=== PATIENT | male | born 1935 | race Caucasian/White ===

== ENCOUNTER 2017-10-04 18:45 | Inpatient (IN) | payer MEDICARE, OTHER ==
[~2017-10-04] VITALS: Ht 177.8 cm; Wt 81.6 kg
[2017-10-04] MEDS ORDERED: FAMOTIDINE20 MG GT (19:03)
[2017-10-04] MEDS ORDERED: HEPARIN2000 UNIT/ IV (19:03)
[2017-10-04] MEDS ORDERED: LEXAPRO10 MG GT (19:03)
[2017-10-04] MEDS ORDERED: DONEPEZIL HCL10 M2 GT (19:03)
[2017-10-04] MEDS ORDERED: NAMENDA10 MG GT (19:03)
[2017-10-04] MEDS ORDERED: MELATONIN1 M2 GT (19:03)
[2017-10-04] MEDS ORDERED: MIRALAX17 G2 ORAL (19:03)
[2017-10-04] MEDS ORDERED: CARDURA1 MG GT (19:03)
[2017-10-04] MEDS ORDERED: DOCUSATE SODIU100 MG GT (19:03)
[2017-10-04] MEDS ORDERED: KLONOPIN0.5 MG GT (19:03)
[2017-10-04] MEDS ORDERED: ANUSOL-HC30 GM RC (19:03)
[2017-10-04] MEDS ORDERED: PANTOPRAZOLE SO40 MG ORAL (19:03)
[2017-10-04] MEDS ORDERED: ASPIR 8181 MG GT (19:03)
[2017-10-04 19:10] VITALS: BP 157/92
[2017-10-04] MEDS ORDERED: Pantoprazole Inj IV ONE (19:15)
[2017-10-04 19:33] LABS: BASOPHILS % (AUTO) 0.6 % (0.0-2.0); EOSINOPHILS % (AUTO) 0.1 % (0.0-3.0); HEMATOCRIT 50.1 % (42.0-52.0); HEMOGLOBIN 15.8 G/DL (14.2-18.0); MEAN CORPUSCULAR VOLUME 96 FL (80-99); MONOCYTES % (AUTO) 8.1 % (1.0-10.0); NEUTROPHILS % (AUTO) 79.3 % (45.0-75.0); PLATELET COUNT 158 K/UL (150-450); RED BLOOD COUNT 5.23 M/UL (4.70-6.10); WHITE BLOOD COUNT 8.4 K/UL (4.8-10.8)
[2017-10-04 19:40] LABS: INR 1.1 (0.9-1.1)
[2017-10-04 19:43] LABS: ANION GAP 9 mmol/L (5-15); BLOOD UREA NITROGEN 18 mg/dL (7-18); CALCIUM 9.8 MG/DL (8.5-10.1); CARBON DIOXIDE 30 MMOL/L (21-32); CHLORIDE 99 MMOL/L (98-107); CREATININE 0.8 MG/DL (0.55-1.30); POTASSIUM 3.7 MMOL/L (3.5-5.1); SODIUM 138 MMOL/L (136-145)
[2017-10-04 19:56] LABS: ALANINE AMINOTRANSFERASE 13 U/L (12-78); ALBUMIN 3.6 G/DL (3.4-5.0); ALBUMIN/GLOBULIN RATIO 0.8 (1.0-2.7); ALKALINE PHOSPHATASE 180 U/L (46-116); ASPARTATE AMINO TRANSFERASE 20 U/L (15-37); BILIRUBIN,TOTAL 1.5 MG/DL (0.2-1.0); CKMB 1.4 NG/ML (0.0-3.6); CREATINE KINASE 78 U/L (26-308)
[2017-10-04 19:57] LABS: BILIRUBIN,DIRECT 0.3 MG/DL (0.0-0.3)
[2017-10-04] MEDS ORDERED: Morphine Sulfate 4mg/ml Inj IVP ONE (20:45)
[2017-10-04 20:53] LABS: APPEARANCE,URINE CLEAR; BILIRUBIN, URINE NEGATIVE (NEGATIVE); GLUCOSE, URINE (UA) NEGATIVE (NEGATIVE); KETONES,URINE 1+ (NEGATIVE); LEUKOCYTE ESTERASE ,URINE 1+ (NEGATIVE); NITRITE,URINE NEGATIVE (NEGATIVE); PH,URINE 5 (4.5-8.0); PROTEIN,URINE 2+ (NEGATIVE); UROBILINOGEN,URINE 1 MG/DL (0.0-1.0)
[2017-10-04 20:57] LABS: COLOR,URINE YELLOW
[2017-10-04 21:00] VITALS: BP 151/74
--- NOTE | 2017-10-04 21:42 | Emergency Room Report ---
History of Present Illness General Chief Complaint: Gastrointestinal Bleed Source: Patient Present Illness HPI 81-year-old male presents ED for evaluation. Patient presents with coffee- ground emesis x2. From shelter today. Patient also complain of epigastric pain, 10 out of 10, sharp, nonradiating. Denies chest pain or shortness of breath. Denies fevers or chills. No other aggravating relieving factors. Denies any other associated symptoms Allergies: Coded Allergies: No Known Allergies (Unverified , 11/30/12) Patient History Past Medical History: HTN Past Surgical History: none Pertinent Family History: none Social History: Denies: smoking, alcohol use, drug use Immunizations: UTD Reviewed Nursing Documentation: PMH: Agreed, PSxH: Agreed Nursing Documentation-PMH Hx Hypertension: Yes Hx Cancer: No Hx Neurological Problems: No Review of Systems All Other Systems: negative except mentioned in HPI Physical Exam Vital Signs Date Time Temp Pulse Resp B/P (MAP) Pulse Ox O2 Delivery O2 Flow Rate FiO2 10/04/17 18:53 98.2 86 20 157/92 100 Room Air Sp02 EP Interpretation: reviewed, normal General Appearance: no apparent distress, alert, GCS 15, non-toxic Head: normocephalic, atraumatic Eyes: bilateral eye normal inspection, bilateral eye PERRL ENT: hearing grossly normal, normal pharynx, no angioedema, normal voice Neck: full range of motion, supple/symm/no masses Respiratory: chest non-tender, lungs clear, normal breath sounds, speaking full sentences Cardiovascular #1: regular rate, rhythm, no edema Cardiovascular #2: 2+ carotid (R), 2+ carotid (L), 2+ radial (R), 2+ radial (L) , 2+ dorsalis pedis (R), 2+ dorsalis pedis (L) Gastrointestinal: normal bowel sounds, soft, non-distended, no guarding, no rebound, tenderness - epigastric Rectal: deferred Genitourinary: normal inspection, no CVA tenderness Musculoskeletal: back normal, gait/station normal, normal range of motion, non- tender Neurologic: alert, oriented x3, responsive, motor strength/tone normal, sensory intact, speech normal Psychiatric: judgement/insight normal, memory normal, mood/affect normal, no suicidal/homicidal ideation Reflexes: 3+ bicep (R), 3+ bicep (L), 3+ tricep (R), 3+ tricep (L), 3+ knee (R) , 3+ knee (L) Skin: normal color, no rash, warm/dry, well hydrated Lymphatic: no adenopathy Medical Decision Making Diagnostic Impression: Primary Impression: UGIB (upper gastrointestinal bleed) ER Course Hospital Course 81-year-old female presents to ED with coffee-ground abscess, epigastric pain Differential diagnoses include: UGIB, LGIB, hemorrhoids Clinical course Patient placed on stretcher. ekg monitor. After initial history and physical I ordered labs, IV fluids, EKG, zofran, protonix Labs - no leukocytosis, Hb/Hct stable. electrolytes ok, trop negative EKG - NSR no acute ischemic changes interpreted by me Case discussed with Dr. Sanchez and he agreed to accept the patient to his service for further care and support I feel this is a highly complex case requiring extensive working including EKG/ Rhythm strip, Xray/CT/US, Blood/urine lab work, repeat exams while in ED, and administration of strong opiates/narcotics for pain control, admission to hospital or close patient follow up. Diagnosis - UGIB Patient admitted to telemetry in serious condition Labs Test 10/04/17 19:10 10/04/17 20:40 White Blood Count 8.4 K/UL (4.8-10.8) Red Blood Count 5.23 M/UL (4.70-6.10) Hemoglobin 15.8 G/DL (14.2-18.0) Hematocrit 50.1 % (42.0-52.0) Mean Corpuscular Volume 96 FL (80-99) Mean Corpuscular Hemoglobin 30.3 PG (27.0-31.0) Mean Corpuscular Hemoglobin Concent 31.6 G/DL (32.0-36.0) Red Cell Distribution Width 12.0 % (11.6-14.8) Platelet Count 158 K/UL (150-450) Mean Platelet Volume 8.3 FL (6.5-10.1) Neutrophils (%) (Auto) 79.3 % (45.0-75.0) Lymphocytes (%) (Auto) 12.0 % (20.0-45.0) Monocytes (%) (Auto) 8.1 % (1.0-10.0) Eosinophils (%) (Auto) 0.1 % (0.0-3.0) Basophils (%) (Auto) 0.6 % (0.0-2.0) Prothrombin Time 11.4 SEC (9.30-11.50) Prothromb Time International Ratio 1.1 (0.9-1.1) Activated Partial Thromboplast Time 29 SEC (23-33) Sodium Level 138 MMOL/L (136-145) Potassium Level 3.7 MMOL/L (3.5-5.1) Chloride Level 99 MMOL/L (98-107) Carbon Dioxide Level 30 MMOL/L (21-32) Anion Gap 9 mmol/L (5-15) Blood Urea Nitrogen 18 mg/dL (7-18) Creatinine 0.8 MG/DL (0.55-1.30) Estimat Glomerular Filtration Rate mL/min (>60) Glucose Level 122 MG/DL (74-106) Calcium Level 9.8 MG/DL (8.5-10.1) Total Bilirubin 1.5 MG/DL (0.2-1.0) Direct Bilirubin 0.3 MG/DL (0.0-0.3) Aspartate Amino Transf (AST/SGOT) 20 U/L (15-37) Alanine Aminotransferase (ALT/SGPT) 13 U/L (12-78) Alkaline Phosphatase 180 U/L (46-116) Total Creatine Kinase 78 U/L (26-308) Creatine Kinase MB 1.4 NG/ML (0.0-3.6) Creatine Kinase MB Relative Index 1.7 Troponin I 0.003 ng/mL (0.000-0.056) Total Protein 8.1 G/DL (6.4-8.2) Albumin 3.6 G/DL (3.4-5.0) Globulin 4.5 g/dL Albumin/Globulin Ratio 0.8 (1.0-2.7) Lipase 87 U/L (73-393) Urine Color Yellow Urine Appearance Clear Urine pH 5 (4.5-8.0) Urine Specific [place] 1.025 (1.005-1.035) Urine Protein 2+ (NEGATIVE) Urine Glucose (UA) Negative (NEGATIVE) Urine Ketones 1+ (NEGATIVE) Urine Occult Blood 1+ (NEGATIVE) Urine Nitrite Negative (NEGATIVE) Urine Bilirubin Negative (NEGATIVE) Urine Urobilinogen 1 MG/DL (0.0-1.0) Urine Leukocyte Esterase 1+ (NEGATIVE) Urine RBC 5-10 /HPF (0 - 0) Urine WBC 2-4 /HPF (0 - 0) Urine Squamous Epithelial Cells None /LPF (NONE/OCC) Urine Amorphous Sediment Few /LPF (NONE) Urine Bacteria Moderate /HPF (NONE) EKG Diagnostic Results Rate: normal Rhythm: NSR ST Segments: no acute changes ASA given to the pt in ED: No Rhythm Strip Diag. Results EP Interpretation: yes Rhythm: NSR, no PVC's, no ectopy Last Vital Signs Date Time Temp Pulse Resp B/P (MAP) Pulse Ox O2 Delivery O2 Flow Rate FiO2 10/04/17 19:10 98.2 90 20 157/92 100 Room Air Status: improved Disposition: ADMITTED INPATIENT Condition: Serious Referrals: LUIS A WILLSON (PCP) WILLIAM JIMENEZ M.D. Oct 04, 2017 21:42
[2017-10-04 23:00] VITALS: BP 136/69
[2017-10-05] VITALS (7 sets, daily range): BP systolic 122–153; BP diastolic 61–78
[2017-10-05] MEDS ORDERED: clonazePAM 0.5mg tab GT PRN (01:00)
[2017-10-05] MEDS ORDERED: Miralax 17gm pkt GT PRN (01:00)
[2017-10-05] MEDS: D5 1/2NS 1,000 ML IV SCH ×2 (02:11→15:11)
[2017-10-05 07:41] LABS: BASOPHILS % (AUTO) 0.2 % (0.0-2.0); HEMATOCRIT 40.3 % (42.0-52.0); HEMOGLOBIN 13.6 G/DL (14.2-18.0); LYMPHOCYTES % (AUTO) 7.9 % (20.0-45.0); MEAN CORPUSCULAR VOLUME 96 FL (80-99); MONOCYTES % (AUTO) 7.2 % (1.0-10.0); NEUTROPHILS % (AUTO) 84.7 % (45.0-75.0); PLATELET COUNT 142 K/UL (150-450); RED BLOOD COUNT 4.21 M/UL (4.70-6.10); RED CELL DISTRIBUTION WIDTH 12.4 % (11.6-14.8); WHITE BLOOD COUNT 10.1 K/UL (4.8-10.8)
[2017-10-05 08:13] LABS: ANION GAP 5 mmol/L (5-15); BLOOD UREA NITROGEN 16 mg/dL (7-18); CALCIUM 8.9 MG/DL (8.5-10.1); CARBON DIOXIDE 32 MMOL/L (21-32); CHLORIDE 103 MMOL/L (98-107); CREATININE 0.9 MG/DL (0.55-1.30); PHOSPHORUS 3.3 MG/DL (2.5-4.9); SODIUM 140 MMOL/L (136-145)
[2017-10-05 08:15] LABS: INR 1.1 (0.9-1.1)
[2017-10-05] MEDS ORDERED: Donepezil 10mg tab GT SCH (09:00)
[2017-10-05] MEDS ORDERED: Escitalopram Oxalate 5mg tab GT SCH (09:00)
[2017-10-05] MEDS: Doxazosin 1mg Tab GT SCH (09:23)
[2017-10-05] MEDS: Memantine 10mg tab GT SCH (09:24)
[2017-10-05] MEDS: Pantoprazole Inj IVP SCH ×2 (09:25→21:45)
--- NOTE | 2017-10-05 12:20 | Diagnostic Imaging Report ---
Indication: Nausea and vomiting. Comparison: None Single view of the abdomen obtained Findings: Some stool retention noted within the colon and rectum. Small bowel is mildly distended in a diffuse fashion. Bones are osteopenic. IMPRESSION: Moderate stool retention. Generalized small bowel dilatation. Ileus suspected. Please correlate clinically. Bowel obstruction not entirely excludable.
--- NOTE | 2017-10-05 12:21 | Diagnostic Imaging Report ---
Indication: Dyspnea Comparison: None A single view chest radiograph was obtained. Findings: Vascularity and reticular markings are prominent within the lungs. Heart size is normal. Basilar atelectasis demonstrated. Bones are osteopenic. IMPRESSION: Possible interstitial edema. Consider noncardiogenic causes. Basilar atelectasis
[2017-10-05] MEDS ORDERED: Morphine Sulfate 2mg/ml Inj IV PRN (13:45)
[2017-10-05] MEDS ORDERED: Mineral Oil 30ml ud ORAL ONE (14:00)
--- NOTE | 2017-10-05 14:55 | Consultation ---
History of Present Illness General Date patient seen: Oct 05, 2017 Chief Complaint: Gastrointestinal Bleed Reason for Consultation: inpatient management Present Illness HPI 81-year-old male with hx of dementia, Gtube, depression, bed bound, prison resident presented to ED for evaluation of coffee-ground emesis x2. Patient also complain of epigastric pain, 10 out of 10, sharp, nonradiating. Denies chest pain or shortness of breath. Pts at the bed site, stating that the pt has hiccups for the last 5 years. Denies any other associated symptoms Allergies: Coded Allergies: No Known Allergies (Unverified , 11/30/12) Medication History Scheduled Aspirin* (Aspir 81*), 81 MG GT DAILY, (Reported) Docusate Sodium* (Docusate Sodium*), 200 MG GT TWICE A DAY, (Reported) Donepezil Hcl* (Donepezil Hcl*), 10 MG GT DAILY, (Reported) Doxazosin Mesylate* (Cardura*), 1 MG GT DAILY, (Reported) Escitalopram Oxalate* (Lexapro*), 5 MG GT DAILY, (Reported) Famotidine (Famotidine), 20 MG GT DAILY, (Reported) Heparin Sodium,Porcine/Ns/Pf (Heparin), 5,000 UNIT IV Q12HR, (Reported) Memantine Hcl* (Namenda*), 10 MG GT DAILY, (Reported) Pantoprazole* (Pantoprazole*), 40 MG ORAL EVERY 12 HOURS, (Reported) Polyethylene Glycol 3350* (Miralax*), 17 GM ORAL DAILY, (Reported) Scheduled PRN Clonazepam* (Klonopin*), 0.25 MG GT Q6H PRN for For Anxiety, (Reported) Miscellaneous Medications Hydrocortisone Hc 2.5% Cream (Anusol-Hc 2.5% Cream), 30 GM RC, (Reported) Melatonin (Melatonin), 3 MG GT, (Reported) Patient History Healthcare decision maker Resuscitation status Full Code Advanced Directive on File No Past Medical/Surgical History Past Medical/Surgical History: (1) Advanced dementia (2) Depression (3) Feeding by G-tube Review of Systems All Other Systems: negative except mentioned in HPI Physical Exam General Appearance: cachetic Lines, tubes and drains: peripheral HEENT: normocephalic, atraumatic Neck: non-tender, normal alignment Respiratory/Chest: chest wall non-tender, lungs clear Breasts: no masses Cardiovascular/Chest: normal peripheral pulses Abdomen: normal bowel sounds Genitourinary/Rectal: normal genital exam, normal prostate exam Skin Exam: normal pigmentation Lymphatic: anterior cervical Last 24 Hour Vital Signs Date Time Temp Pulse Resp B/P (MAP) Pulse Ox O2 Delivery O2 Flow Rate FiO2 10/05/17 12:00 97.4 85 19 138/72 95 10/05/17 08:00 97.1 81 19 122/72 96 10/05/17 04:00 98.4 81 20 129/65 96 10/05/17 03:52 82 10/05/17 00:40 98.1 91 20 153/74 96 10/05/17 00:20 98.2 94 25 135/61 97 Nasal Cannula 4.0 10/05/17 00:00 94 25 135/61 97 Nasal Cannula 4.0 10/04/17 23:00 85 24 136/69 97 Nasal Cannula 4.0 10/04/17 21:00 87 22 151/74 97 Nasal Cannula 3.0 10/04/17 19:10 98.2 90 20 157/92 100 Room Air 10/04/17 18:53 98.2 86 20 157/92 100 Room Air Intake and Output 10/04/17 10/05/17 19:00 07:00 Intake Total 300 ml Balance 300 ml Intake Oral 0 ml IV Total 300 ml Laboratory Tests Test 10/04/17 19:10 10/04/17 20:40 10/05/17 05:10 White Blood Count 8.4 K/UL (4.8-10.8) 10.1 K/UL (4.8-10.8) Red Blood Count 5.23 M/UL (4.70-6.10) 4.21 M/UL (4.70-6.10) L Hemoglobin 15.8 G/DL (14.2-18.0) 13.6 G/DL (14.2-18.0) L Hematocrit 50.1 % (42.0-52.0) 40.3 % (42.0-52.0) L Mean Corpuscular Volume 96 FL (80-99) 96 FL (80-99) Mean Corpuscular Hemoglobin 30.3 PG (27.0-31.0) 32.2 PG (27.0-31.0) H Mean Corpuscular Hemoglobin Concent 31.6 G/DL (32.0-36.0) L 33.6 G/DL (32.0-36.0) Red Cell Distribution Width 12.0 % (11.6-14.8) 12.4 % (11.6-14.8) Platelet Count 158 K/UL (150-450) 142 K/UL (150-450) L Mean Platelet Volume 8.3 FL (6.5-10.1) 8.0 FL (6.5-10.1) Neutrophils (%) (Auto) 79.3 % (45.0-75.0) H 84.7 % (45.0-75.0) H Lymphocytes (%) (Auto) 12.0 % (20.0-45.0) L 7.9 % (20.0-45.0) L Monocytes (%) (Auto) 8.1 % (1.0-10.0) 7.2 % (1.0-10.0) Eosinophils (%) (Auto) 0.1 % (0.0-3.0) 0.0 % (0.0-3.0) Basophils (%) (Auto) 0.6 % (0.0-2.0) 0.2 % (0.0-2.0) Prothrombin Time 11.4 SEC (9.30-11.50) 11.9 SEC (9.30-11.50) H Prothromb Time International Ratio 1.1 (0.9-1.1) 1.1 (0.9-1.1) Activated Partial Thromboplast Time 29 SEC (23-33) 30 SEC (23-33) Sodium Level 138 MMOL/L (136-145) 140 MMOL/L (136-145) Potassium Level 3.7 MMOL/L (3.5-5.1) 4.0 MMOL/L (3.5-5.1) Chloride Level 99 MMOL/L (98-107) 103 MMOL/L (98-107) Carbon Dioxide Level 30 MMOL/L (21-32) 32 MMOL/L (21-32) Anion Gap 9 mmol/L (5-15) 5 mmol/L (5-15) Blood Urea Nitrogen 18 mg/dL (7-18) 16 mg/dL (7-18) Creatinine 0.8 MG/DL (0.55-1.30) 0.9 MG/DL (0.55-1.30) Estimat Glomerular Filtration Rate mL/min (>60) mL/min (>60) Glucose Level 122 MG/DL (74-106) H 116 MG/DL (74-106) H Calcium Level 9.8 MG/DL (8.5-10.1) 8.9 MG/DL (8.5-10.1) Total Bilirubin 1.5 MG/DL (0.2-1.0) H Direct Bilirubin 0.3 MG/DL (0.0-0.3) Aspartate Amino Transf (AST/SGOT) 20 U/L (15-37) Alanine Aminotransferase (ALT/SGPT) 13 U/L (12-78) Alkaline Phosphatase 180 U/L (46-116) H Total Creatine Kinase 78 U/L (26-308) Creatine Kinase MB 1.4 NG/ML (0.0-3.6) Creatine Kinase MB Relative Index 1.7 Troponin I 0.003 ng/mL (0.000-0.056) 0.020 ng/mL (0.000-0.056) Total Protein 8.1 G/DL (6.4-8.2) Albumin 3.6 G/DL (3.4-5.0) Globulin 4.5 g/dL Albumin/Globulin Ratio 0.8 (1.0-2.7) L Lipase 87 U/L (73-393) Urine Color Yellow Urine Appearance Clear Urine pH 5 (4.5-8.0) Urine Specific [place] 1.025 (1.005-1.035) Urine Protein 2+ (NEGATIVE) H Urine Glucose (UA) Negative (NEGATIVE) Urine Ketones 1+ (NEGATIVE) H Urine Occult Blood 1+ (NEGATIVE) H Urine Nitrite Negative (NEGATIVE) Urine Bilirubin Negative (NEGATIVE) Urine Urobilinogen 1 MG/DL (0.0-1.0) H Urine Leukocyte Esterase 1+ (NEGATIVE) H Urine RBC 5-10 /HPF (0 - 0) H Urine WBC 2-4 /HPF (0 - 0) Urine Squamous Epithelial Cells None /LPF (NONE/OCC) Urine Amorphous Sediment Few /LPF (NONE) H Urine Bacteria Moderate /HPF (NONE) H Phosphorus Level 3.3 MG/DL (2.5-4.9) Magnesium Level 1.8 MG/DL (1.8-2.4) Height (Feet): 5 Height (Inches): 10.00 Weight (Pounds): 180 Medications Current Medications Medications (Trade) Dose Ordered Sig/Abelino Route PRN Reason Start Time Stop Time Status Last Admin Dose Admin Acetaminophen (Tylenol) 650 mg Q4H PRN ORAL Mild Pain/Temp > 100.5 10/05/17 01:00 11/04/17 00:59 Chlorpromazine (Thorazine) 25 mg EVERY 6 HOURS PRN IVPB hiccupas 10/05/17 13:45 11/04/17 13:44 UNV Clonazepam (KlonoPIN) 0.25 mg Q6H PRN GT For Anxiety 10/05/17 01:00 10/12/17 00:59 Dextrose/Sodium Chloride 1,000 ml @ 75 mls/hr [id number] IV 10/05/17 02:00 11/04/17 01:59 10/05/17 02:11 Donepezil HCl (Aricept) 10 mg DAILY GT 10/05/17 09:00 11/04/17 08:59 10/05/17 09:23 Doxazosin Mesylate (Cardura) 1 mg DAILY GT 10/05/17 09:00 11/04/17 08:59 10/05/17 09:23 Escitalopram Oxalate (Lexapro) 10 mg DAILY GT 10/06/17 09:00 11/05/17 08:59 Memantine (Namenda) 10 mg DAILY GT 10/05/17 09:00 11/04/17 08:59 10/05/17 09:24 Mineral Oil (Mineral Oil) 30 ml ONCE ONCE GT 10/05/17 15:00 10/05/17 15:01 Morphine Sulfate (Morphine Sulfate) 2 mg Q4H PRN IV For Severe Pain 10/05/17 13:45 10/12/17 13:44 Ondansetron HCl (Zofran) 4 mg Q4H PRN IVP Nausea & Vomiting 10/05/17 01:00 11/04/17 00:59 Pantoprazole (Protonix) 40 mg EVERY 12 HOURS IVP 10/05/17 09:00 11/04/17 08:59 10/05/17 09:25 Piperacillin Sod/ Tazobactam Sod 3.375 gm/Sodium Chloride 110 ml @ 27.5 mls/hr EVERY 8 HOURS IVPB 10/05/17 15:30 10/12/17 15:29 Polyethylene Glycol (Miralax) 17 gm DAILY PRN GT Constipation 10/05/17 01:00 11/04/17 00:59 10/05/17 02:11 Assessment/Plan Problem List: (1) UGIB (upper gastrointestinal bleed) ICD Codes: K92.2 - Gastrointestinal hemorrhage, unspecified SNOMED: 52580788 (2) Advanced dementia ICD Codes: F03.90 - Unspecified dementia without behavioral disturbance SNOMED: 19338565 (3) Feeding by G-tube ICD Codes: Z93.1 - Gastrostomy status SNOMED: 040157560, 014996064 (4) Depression ICD Codes: F32.9 - Major depressive disorder, single episode, unspecified SNOMED: 73744566 Assessment/Plan npo iv fluids GI evaluation IV abx for UTI neuro evaluation thorazine for hiccups MECHE GARCIA Oct 05, 2017 14:54
[2017-10-05] MEDS ORDERED: Mineral Oil 30ml ud GT ONE (15:00)
--- NOTE | 2017-10-05 15:22 | Consultation ---
History of Present Illness General Date patient seen: Oct 05, 2017 Time patient seen: 15:09 Chief Complaint: Gastrointestinal Bleed Reason for Consultation: inpatient management Present Illness HPI 81 y/o M with hx of HTN, Advance Dementia, Dysphagia s/p Gtube, MDD, bedbound, hiccups, halfway resident presents to ED on 10/04 with 2 episodes of coffee -ground emesis, 07/04 ,sharp, non radiating epigastric pain Denies CP, SOB, f/c. +abd distention, chronic dysuria for ~1 year Allergies: Coded Allergies: No Known Allergies (Unverified , 11/30/12) Medication History Scheduled Aspirin* (Aspir 81*), 81 MG GT DAILY, (Reported) Docusate Sodium* (Docusate Sodium*), 200 MG GT TWICE A DAY, (Reported) Donepezil Hcl* (Donepezil Hcl*), 10 MG GT DAILY, (Reported) Doxazosin Mesylate* (Cardura*), 1 MG GT DAILY, (Reported) Escitalopram Oxalate* (Lexapro*), 5 MG GT DAILY, (Reported) Famotidine (Famotidine), 20 MG GT DAILY, (Reported) Heparin Sodium,Porcine/Ns/Pf (Heparin), 5,000 UNIT IV Q12HR, (Reported) Memantine Hcl* (Namenda*), 10 MG GT DAILY, (Reported) Pantoprazole* (Pantoprazole*), 40 MG ORAL EVERY 12 HOURS, (Reported) Polyethylene Glycol 3350* (Miralax*), 17 GM ORAL DAILY, (Reported) Scheduled PRN Clonazepam* (Klonopin*), 0.25 MG GT Q6H PRN for For Anxiety, (Reported) Miscellaneous Medications Hydrocortisone Hc 2.5% Cream (Anusol-Hc 2.5% Cream), 30 GM RC, (Reported) Melatonin (Melatonin), 3 MG GT, (Reported) Patient History Healthcare decision maker Resuscitation status Full Code Advanced Directive on File No Patient History Narrative PHx: as above Shx: Denies: smoking, alcohol use, drug use Fhx: non contributory Review of Systems All Other Systems: negative except mentioned in HPI Physical Exam Physical Exam Narrative General Appearance: cachetic Lines, tubes and drains: peripheral HEENT: normocephalic, atraumatic Neck: non-tender, normal alignment Respiratory/Chest: chest wall non-tender, lungs clear Breasts: no masses Cardiovascular/Chest: normal peripheral pulses Abdomen: normal bowel sounds, distended adomen, mild epigastric TTP, PEG tube in place Genitourinary/Rectal: normal genital exam, normal prostate exam Skin Exam: normal pigmentation Lymphatic: anterior cervical Last 24 Hour Vital Signs Date Time Temp Pulse Resp B/P (MAP) Pulse Ox O2 Delivery O2 Flow Rate FiO2 10/05/17 12:00 97.4 85 19 138/72 95 10/05/17 08:00 97.1 81 19 122/72 96 10/05/17 04:00 98.4 81 20 129/65 96 10/05/17 03:52 82 10/05/17 00:40 98.1 91 20 153/74 96 10/05/17 00:20 98.2 94 25 135/61 97 Nasal Cannula 4.0 10/05/17 00:00 94 25 135/61 97 Nasal Cannula 4.0 10/04/17 23:00 85 24 136/69 97 Nasal Cannula 4.0 10/04/17 21:00 87 22 151/74 97 Nasal Cannula 3.0 10/04/17 19:10 98.2 90 20 157/92 100 Room Air 10/04/17 18:53 98.2 86 20 157/92 100 Room Air Intake and Output 10/04/17 10/05/17 19:00 07:00 Intake Total 300 ml Balance 300 ml Intake Oral 0 ml IV Total 300 ml Laboratory Tests Test 10/04/17 19:10 10/04/17 20:40 10/05/17 05:10 White Blood Count 8.4 K/UL (4.8-10.8) 10.1 K/UL (4.8-10.8) Red Blood Count 5.23 M/UL (4.70-6.10) 4.21 M/UL (4.70-6.10) L Hemoglobin 15.8 G/DL (14.2-18.0) 13.6 G/DL (14.2-18.0) L Hematocrit 50.1 % (42.0-52.0) 40.3 % (42.0-52.0) L Mean Corpuscular Volume 96 FL (80-99) 96 FL (80-99) Mean Corpuscular Hemoglobin 30.3 PG (27.0-31.0) 32.2 PG (27.0-31.0) H Mean Corpuscular Hemoglobin Concent 31.6 G/DL (32.0-36.0) L 33.6 G/DL (32.0-36.0) Red Cell Distribution Width 12.0 % (11.6-14.8) 12.4 % (11.6-14.8) Platelet Count 158 K/UL (150-450) 142 K/UL (150-450) L Mean Platelet Volume 8.3 FL (6.5-10.1) 8.0 FL (6.5-10.1) Neutrophils (%) (Auto) 79.3 % (45.0-75.0) H 84.7 % (45.0-75.0) H Lymphocytes (%) (Auto) 12.0 % (20.0-45.0) L 7.9 % (20.0-45.0) L Monocytes (%) (Auto) 8.1 % (1.0-10.0) 7.2 % (1.0-10.0) Eosinophils (%) (Auto) 0.1 % (0.0-3.0) 0.0 % (0.0-3.0) Basophils (%) (Auto) 0.6 % (0.0-2.0) 0.2 % (0.0-2.0) Prothrombin Time 11.4 SEC (9.30-11.50) 11.9 SEC (9.30-11.50) H Prothromb Time International Ratio 1.1 (0.9-1.1) 1.1 (0.9-1.1) Activated Partial Thromboplast Time 29 SEC (23-33) 30 SEC (23-33) Sodium Level 138 MMOL/L (136-145) 140 MMOL/L (136-145) Potassium Level 3.7 MMOL/L (3.5-5.1) 4.0 MMOL/L (3.5-5.1) Chloride Level 99 MMOL/L (98-107) 103 MMOL/L (98-107) Carbon Dioxide Level 30 MMOL/L (21-32) 32 MMOL/L (21-32) Anion Gap 9 mmol/L (5-15) 5 mmol/L (5-15) Blood Urea Nitrogen 18 mg/dL (7-18) 16 mg/dL (7-18) Creatinine 0.8 MG/DL (0.55-1.30) 0.9 MG/DL (0.55-1.30) Estimat Glomerular Filtration Rate mL/min (>60) mL/min (>60) Glucose Level 122 MG/DL (74-106) H 116 MG/DL (74-106) H Calcium Level 9.8 MG/DL (8.5-10.1) 8.9 MG/DL (8.5-10.1) Total Bilirubin 1.5 MG/DL (0.2-1.0) H Direct Bilirubin 0.3 MG/DL (0.0-0.3) Aspartate Amino Transf (AST/SGOT) 20 U/L (15-37) Alanine Aminotransferase (ALT/SGPT) 13 U/L (12-78) Alkaline Phosphatase 180 U/L (46-116) H Total Creatine Kinase 78 U/L (26-308) Creatine Kinase MB 1.4 NG/ML (0.0-3.6) Creatine Kinase MB Relative Index 1.7 Troponin I 0.003 ng/mL (0.000-0.056) 0.020 ng/mL (0.000-0.056) Total Protein 8.1 G/DL (6.4-8.2) Albumin 3.6 G/DL (3.4-5.0) Globulin 4.5 g/dL Albumin/Globulin Ratio 0.8 (1.0-2.7) L Lipase 87 U/L (73-393) Urine Color Yellow Urine Appearance Clear Urine pH 5 (4.5-8.0) Urine Specific [place] 1.025 (1.005-1.035) Urine Protein 2+ (NEGATIVE) H Urine Glucose (UA) Negative (NEGATIVE) Urine Ketones 1+ (NEGATIVE) H Urine Occult Blood 1+ (NEGATIVE) H Urine Nitrite Negative (NEGATIVE) Urine Bilirubin Negative (NEGATIVE) Urine Urobilinogen 1 MG/DL (0.0-1.0) H Urine Leukocyte Esterase 1+ (NEGATIVE) H Urine RBC 5-10 /HPF (0 - 0) H Urine WBC 2-4 /HPF (0 - 0) Urine Squamous Epithelial Cells None /LPF (NONE/OCC) Urine Amorphous Sediment Few /LPF (NONE) H Urine Bacteria Moderate /HPF (NONE) H Phosphorus Level 3.3 MG/DL (2.5-4.9) Magnesium Level 1.8 MG/DL (1.8-2.4) Height (Feet): 5 Height (Inches): 10.00 Weight (Pounds): 180 Medications Current Medications Medications (Trade) Dose Ordered Sig/Abelino Route PRN Reason Start Time Stop Time Status Last Admin Dose Admin Acetaminophen (Tylenol) 650 mg Q4H PRN ORAL Mild Pain/Temp > 100.5 10/05/17 01:00 11/04/17 00:59 Chlorpromazine (Thorazine) 25 mg EVERY 6 HOURS PRN IVPB hiccupas 10/05/17 13:45 11/04/17 13:44 UNV Clonazepam (KlonoPIN) 0.25 mg Q6H PRN GT For Anxiety 10/05/17 01:00 10/12/17 00:59 Dextrose/Sodium Chloride 1,000 ml @ 75 mls/hr [id number] IV 10/05/17 02:00 11/04/17 01:59 10/05/17 02:11 Donepezil HCl (Aricept) 10 mg DAILY GT 10/05/17 09:00 11/04/17 08:59 10/05/17 09:23 Doxazosin Mesylate (Cardura) 1 mg DAILY GT 10/05/17 09:00 11/04/17 08:59 10/05/17 09:23 Escitalopram Oxalate (Lexapro) 10 mg DAILY GT 10/06/17 09:00 11/05/17 08:59 Memantine (Namenda) 10 mg DAILY GT 10/05/17 09:00 11/04/17 08:59 10/05/17 09:24 Morphine Sulfate (Morphine Sulfate) 2 mg Q4H PRN IV For Severe Pain 10/05/17 13:45 10/12/17 13:44 Ondansetron HCl (Zofran) 4 mg Q4H PRN IVP Nausea & Vomiting 10/05/17 01:00 11/04/17 00:59 Pantoprazole (Protonix) 40 mg EVERY 12 HOURS IVP 10/05/17 09:00 11/04/17 08:59 10/05/17 09:25 Piperacillin Sod/ Tazobactam Sod 3.375 gm/Sodium Chloride 110 ml @ 27.5 mls/hr EVERY 8 HOURS IVPB 10/05/17 15:30 10/12/17 15:29 Polyethylene Glycol (Miralax) 17 gm DAILY PRN GT Constipation 10/05/17 01:00 11/04/17 00:59 10/05/17 02:11 Assessment/Plan Assessment/Plan Abx: Zosyn 10/05- Assessment: UGIB Possible Ileus -Abd xray: Moderate stool retention. Generalized small bowel dilatation. Ileus suspected. Please correlate clinically. Bowel obstruction not entirely excludable. Afebrile, no leukocytosis- no evidence of active infectious process -u/a no pyuria, nit neg, leuk +1; has chronic dysuria- this argues against UTI -CXR: Vascularity and reticular markings are prominent within the lungs. Heart size is normal. Basilar atelectasis demonstrate HTN Advance Dementia Dysphagia s/p Gtube MDD bedbound hiccups halfway resident Plan: -D/C ZOsyn and continue to monitor off abx -f/u cx -Monitor CBC/BMP, temperatures -GI eval -Aspiration precautions Thank you for this consultation. Will continue to follow along with you. Discussed with RN and family at bedside. Jennifer Lomeli M.D. Oct 05, 2017 15:22
[2017-10-05] MEDS ORDERED: Piperacillin/Tazobactam 3.375 GM in NS 110 ML IVPB SCH (15:30)
[2017-10-05] MEDS: CHLORPROMAZINE IVPB PRN (16:52)
[2017-10-05] MEDS: NS IVPB PRN (16:52)
--- NOTE | 2017-10-05 17:26 | GI Initial Consult Note ---
History of Present Illness General Date patient seen: Oct 05, 2017 Time patient seen: 11:00 Reason for Hospitalization: Gastrointestinal Bleed Referring physician: MECHE SEAY Reason for Consultation: GI BLEED Present Illness HPI 81-year-old male presents ED for evaluation. Patient presents with coffee- ground emesis x2. From residential today. Patient also complain of epigastric pain, 10 out of 10, sharp, nonradiating. Denies chest pain or shortness of breath. Denies fevers or chills. No other aggravating relieving factors. Denies any other associated symptoms GI consulted for GI bleed. HPI noted above. ROS limited, pt seen on floor awake alert NAD with no active s/x of N/V/D. Presents today with mild anemia. GT present. Unknown history of endoscopy / colonoscopies. Home Meds Reported Medications Pantoprazole* (PANTOPRAZOLE*) 40 Mg Tablet.dr, 40 MG ORAL EVERY 12 HOURS, TAB 10/04/17 Polyethylene Glycol 3350* (MIRALAX*) 17 Gm Powd.pack, 17 GM ORAL DAILY, PACKET 10/04/17 Memantine Hcl* (NAMENDA*) 10 Mg Tablet, 10 MG GT DAILY, TAB 10/04/17 Melatonin (MELATONIN) 1 Mg Tablet.er, 3 MG GT, TAB 10/04/17 Heparin Sodium,Porcine/Ns/Pf (Heparin) 2,000 Unit/1000 Ml Iv.soln, 5000 UNIT IV Q12HR 10/04/17 Famotidine (FAMOTIDINE) 20 Mg Tablet, 20 MG GT DAILY, #30 TAB 0 Refills 10/04/17 Escitalopram Oxalate* (LEXAPRO*) 10 Mg Tablet, 5 MG GT DAILY, TAB 10/04/17 Donepezil Hcl* (DONEPEZIL HCL*) 10 Mg Tab.rapdis, 10 MG GT DAILY, TAB 10/04/17 Docusate Sodium* (DOCUSATE SODIUM*) 100 Mg Capsule, 200 MG GT TWICE A DAY, CAP 10/04/17 Clonazepam* (KLONOPIN*) 0.5 Mg Tablet, 0.25 MG GT Q6H Y for For Anxiety, #15 TAB 0 Refills 10/04/17 Doxazosin Mesylate* (CARDURA*) 1 Mg Tablet, 1 MG GT DAILY, TAB 10/04/17 Aspirin* (ASPIR 81*) 81 Mg Tablet.dr, 81 MG GT DAILY, TAB 10/04/17 Hydrocortisone Hc 2.5% Cream (ANUSOL-HC 2.5% CREAM) Y Cr, 30 GM RC, GM 10/04/17 Med list reviewed/reconciled: Yes Allergies: Coded Allergies: No Known Allergies (Unverified , 11/30/12) Patient History History Provided By: Patient, Medical Record PMH Narrative Past Medical History: HTN Past Surgical History: none Pertinent Family History: none Social History: Denies: smoking, alcohol use, drug use Immunizations: UTD Reviewed Nursing Documentation: PMH: Agreed, PSxH: Agreed Nursing Documentation-PMH Hx Hypertension: Yes Hx Cancer: No Hx Neurological Problems: No Review of Systems All Other Systems: limited Physical Exam Vital Signs Date Time Temp Pulse Resp B/P (MAP) Pulse Ox O2 Delivery O2 Flow Rate FiO2 10/04/17 18:53 98.2 86 20 157/92 100 Room Air 10/04/17 21:00 3.0 Sp02 EP Interpretation: reviewed Labs Laboratory Tests Test 10/04/17 19:10 10/04/17 20:40 10/05/17 05:10 White Blood Count 8.4 K/UL (4.8-10.8) 10.1 K/UL (4.8-10.8) Red Blood Count 5.23 M/UL (4.70-6.10) 4.21 M/UL (4.70-6.10) L Hemoglobin 15.8 G/DL (14.2-18.0) 13.6 G/DL (14.2-18.0) L Hematocrit 50.1 % (42.0-52.0) 40.3 % (42.0-52.0) L Mean Corpuscular Volume 96 FL (80-99) 96 FL (80-99) Mean Corpuscular Hemoglobin 30.3 PG (27.0-31.0) 32.2 PG (27.0-31.0) H Mean Corpuscular Hemoglobin Concent 31.6 G/DL (32.0-36.0) L 33.6 G/DL (32.0-36.0) Red Cell Distribution Width 12.0 % (11.6-14.8) 12.4 % (11.6-14.8) Platelet Count 158 K/UL (150-450) 142 K/UL (150-450) L Mean Platelet Volume 8.3 FL (6.5-10.1) 8.0 FL (6.5-10.1) Neutrophils (%) (Auto) 79.3 % (45.0-75.0) H 84.7 % (45.0-75.0) H Lymphocytes (%) (Auto) 12.0 % (20.0-45.0) L 7.9 % (20.0-45.0) L Monocytes (%) (Auto) 8.1 % (1.0-10.0) 7.2 % (1.0-10.0) Eosinophils (%) (Auto) 0.1 % (0.0-3.0) 0.0 % (0.0-3.0) Basophils (%) (Auto) 0.6 % (0.0-2.0) 0.2 % (0.0-2.0) Prothrombin Time 11.4 SEC (9.30-11.50) 11.9 SEC (9.30-11.50) H Prothromb Time International Ratio 1.1 (0.9-1.1) 1.1 (0.9-1.1) Activated Partial Thromboplast Time 29 SEC (23-33) 30 SEC (23-33) Sodium Level 138 MMOL/L (136-145) 140 MMOL/L (136-145) Potassium Level 3.7 MMOL/L (3.5-5.1) 4.0 MMOL/L (3.5-5.1) Chloride Level 99 MMOL/L (98-107) 103 MMOL/L (98-107) Carbon Dioxide Level 30 MMOL/L (21-32) 32 MMOL/L (21-32) Anion Gap 9 mmol/L (5-15) 5 mmol/L (5-15) Blood Urea Nitrogen 18 mg/dL (7-18) 16 mg/dL (7-18) Creatinine 0.8 MG/DL (0.55-1.30) 0.9 MG/DL (0.55-1.30) Estimat Glomerular Filtration Rate mL/min (>60) mL/min (>60) Glucose Level 122 MG/DL (74-106) H 116 MG/DL (74-106) H Calcium Level 9.8 MG/DL (8.5-10.1) 8.9 MG/DL (8.5-10.1) Total Bilirubin 1.5 MG/DL (0.2-1.0) H Direct Bilirubin 0.3 MG/DL (0.0-0.3) Aspartate Amino Transf (AST/SGOT) 20 U/L (15-37) Alanine Aminotransferase (ALT/SGPT) 13 U/L (12-78) Alkaline Phosphatase 180 U/L (46-116) H Total Creatine Kinase 78 U/L (26-308) Creatine Kinase MB 1.4 NG/ML (0.0-3.6) Creatine Kinase MB Relative Index 1.7 Troponin I 0.003 ng/mL (0.000-0.056) 0.020 ng/mL (0.000-0.056) Total Protein 8.1 G/DL (6.4-8.2) Albumin 3.6 G/DL (3.4-5.0) Globulin 4.5 g/dL Albumin/Globulin Ratio 0.8 (1.0-2.7) L Lipase 87 U/L (73-393) Urine Color Yellow Urine Appearance Clear Urine pH 5 (4.5-8.0) Urine Specific [place] 1.025 (1.005-1.035) Urine Protein 2+ (NEGATIVE) H Urine Glucose (UA) Negative (NEGATIVE) Urine Ketones 1+ (NEGATIVE) H Urine Occult Blood 1+ (NEGATIVE) H Urine Nitrite Negative (NEGATIVE) Urine Bilirubin Negative (NEGATIVE) Urine Urobilinogen 1 MG/DL (0.0-1.0) H Urine Leukocyte Esterase 1+ (NEGATIVE) H Urine RBC 5-10 /HPF (0 - 0) H Urine WBC 2-4 /HPF (0 - 0) Urine Squamous Epithelial Cells None /LPF (NONE/OCC) Urine Amorphous Sediment Few /LPF (NONE) H Urine Bacteria Moderate /HPF (NONE) H Phosphorus Level 3.3 MG/DL (2.5-4.9) Magnesium Level 1.8 MG/DL (1.8-2.4) General Appearance: no apparent distress, alert Head: normocephalic EENT: PERRL/EOMI, normal ENT inspection Neck: supple Respiratory: no respiratory distress Cardiovascular: normal rate Gastrointestinal: soft, gt - c/d/i Rectal: deferred Musculoskeletal: back normal Neurologic: alert Skin: normal inspection, normal color, no rash, warm/dry Lymphatic: normal inspection, no adenopathy Current Medications Current Medications Medications (Trade) Dose Ordered Sig/Abelino Route PRN Reason Start Time Stop Time Status Last Admin Dose Admin Acetaminophen (Tylenol) 650 mg Q4H PRN ORAL Mild Pain/Temp > 100.5 10/05/17 01:00 11/04/17 00:59 Chlorpromazine 25 mg/Sodium Chloride 56 ml @ 110 mls/hr Q6H PRN IVPB HICCUPS 10/05/17 17:00 11/04/17 16:59 10/05/17 16:52 Clonazepam (KlonoPIN) 0.25 mg Q6H PRN GT For Anxiety 10/05/17 01:00 10/12/17 00:59 Dextrose/Sodium Chloride 1,000 ml @ 75 mls/hr [id number] IV 10/05/17 02:00 11/04/17 01:59 10/05/17 15:11 Doxazosin Mesylate (Cardura) 1 mg DAILY GT 10/05/17 09:00 11/04/17 08:59 10/05/17 09:23 Escitalopram Oxalate (Lexapro) 10 mg DAILY GT 10/06/17 09:00 11/05/17 08:59 Memantine (Namenda) 10 mg DAILY GT 10/05/17 09:00 11/04/17 08:59 10/05/17 09:24 Morphine Sulfate (Morphine Sulfate) 2 mg Q4H PRN IV For Severe Pain 10/05/17 13:45 10/12/17 13:44 Ondansetron HCl (Zofran) 4 mg Q4H PRN IVP Nausea & Vomiting 10/05/17 01:00 11/04/17 00:59 Pantoprazole (Protonix) 40 mg EVERY 12 HOURS IVP 10/05/17 09:00 11/04/17 08:59 10/05/17 09:25 Polyethylene Glycol (Miralax) 17 gm DAILY PRN GT Constipation 10/05/17 01:00 11/04/17 00:59 10/05/17 02:11 GI: Plan Problems: (1) Advanced dementia (2) Upper GI bleed (3) Feeding by G-tube (4) UGIB (upper gastrointestinal bleed) Plan EGD scheduled for tomorrow. [facility] anemia work up OB stool r/o GI bleed monitor H&H, prn transfusions bowel regime ppi BID fu labs Discussed with Dr. Swanson. Thank you for this patient referral, we will follow. Rekha Esteban N.P. Oct 05, 2017 17:26
--- NOTE | 2017-10-05 18:46 | History & Physical ---
History and Physical History & Physicial Dictated for Int Med-Dr Sanchez no. [id number]. CRIS LEWIS Oct 05, 2017 18:46
[2017-10-06] VITALS (10 sets, daily range): BP systolic 106–128; BP diastolic 60–71
[2017-10-06] MEDS: D5 1/2NS 1,000 ML IV SCH ×2 (04:58→17:09)
--- NOTE | 2017-10-06 06:42 | Anethesia Preoperative Eval ---
Anesthesia Pre-op PMH/ROS General Date of Evaluation: Oct 06, 2017 Time of Evaluation: 06:36 Anesthesiologist: yadira ASA Score: ASA 4 Mallampati Score Class I : Soft palate, uvula, fauces, pillars visible Class II: Soft palate, uvula, fauces visible Class III: Soft palate, base of uvula visible Class IV: Only hard plate visible Mallampati Classification: Class II Surgeon: robert Diagnosis: ugib Surgical Procedure: egd Anesthesia History: none Family History: no anesthesia problems Allergies: Coded Allergies: No Known Allergies (Unverified , 11/30/12) Medications: see eMAR Past Medical History Cardiovascular: Reports: HTN, other - brugada syndrome Pulmonary: Reports: other - pneumonia, emi nodule, hypoxia Gastrointestinal/Genitourinary: Reports: other - g-tube, polyps, ugib Neurologic/Psychiatric: Reports: dementia, CVA, depression/anxiety Hematology/Immune: Reports: anemia Anesthesia Pre-op Phys. Exam Physician Exam Last Vital Signs Date Time Temp Pulse Resp B/P (MAP) Pulse Ox O2 Delivery O2 Flow Rate FiO2 10/06/17 04:10 98.7 84 19 119/69 97 Nasal Cannula 10/05/17 00:20 4.0 Constitutional: NAD Neurologic: CN 2-12 intact Cardiovascular: RRR Respiratory: CTA Gastrointestinal: S/NT/ND Airway Exam Mallampati Score: Class II Neck: decreased rom to lateral rotation TMD: 1fb ROM: limited Anesthesia Pre-op A/P Labs Labs Test 10/04/17 19:10 10/04/17 20:40 10/05/17 05:10 10/06/17 06:04 White Blood Count 8.4 K/UL (4.8-10.8) 10.1 K/UL (4.8-10.8) 8.9 K/UL (4.8-10.8) Red Blood Count 5.23 M/UL (4.70-6.10) 4.21 M/UL (4.70-6.10) 3.94 M/UL (4.70-6.10) Hemoglobin 15.8 G/DL (14.2-18.0) 13.6 G/DL (14.2-18.0) 13.2 G/DL (14.2-18.0) Hematocrit 50.1 % (42.0-52.0) 40.3 % (42.0-52.0) 37.8 % (42.0-52.0) Mean Corpuscular Volume 96 FL (80-99) 96 FL (80-99) 96 FL (80-99) Mean Corpuscular Hemoglobin 30.3 PG (27.0-31.0) 32.2 PG (27.0-31.0) 33.5 PG (27.0-31.0) Mean Corpuscular Hemoglobin Concent 31.6 G/DL (32.0-36.0) 33.6 G/DL (32.0-36.0) 34.8 G/DL (32.0-36.0) Red Cell Distribution Width 12.0 % (11.6-14.8) 12.4 % (11.6-14.8) 12.3 % (11.6-14.8) Platelet Count 158 K/UL (150-450) 142 K/UL (150-450) 126 K/UL (150-450) Mean Platelet Volume 8.3 FL (6.5-10.1) 8.0 FL (6.5-10.1) 8.4 FL (6.5-10.1) Neutrophils (%) (Auto) 79.3 % (45.0-75.0) 84.7 % (45.0-75.0) 79.5 % (45.0-75.0) Lymphocytes (%) (Auto) 12.0 % (20.0-45.0) 7.9 % (20.0-45.0) 8.1 % (20.0-45.0) Monocytes (%) (Auto) 8.1 % (1.0-10.0) 7.2 % (1.0-10.0) 12.1 % (1.0-10.0) Eosinophils (%) (Auto) 0.1 % (0.0-3.0) 0.0 % (0.0-3.0) 0.0 % (0.0-3.0) Basophils (%) (Auto) 0.6 % (0.0-2.0) 0.2 % (0.0-2.0) 0.3 % (0.0-2.0) Prothrombin Time 11.4 SEC (9.30-11.50) 11.9 SEC (9.30-11.50) 12.0 SEC (9.30-11.50) Prothromb Time International Ratio 1.1 (0.9-1.1) 1.1 (0.9-1.1) 1.1 (0.9-1.1) Activated Partial Thromboplast Time 29 SEC (23-33) 30 SEC (23-33) 30 SEC (23-33) Sodium Level 138 MMOL/L (136-145) 140 MMOL/L (136-145) 140 MMOL/L (136-145) Potassium Level 3.7 MMOL/L (3.5-5.1) 4.0 MMOL/L (3.5-5.1) 3.8 MMOL/L (3.5-5.1) Chloride Level 99 MMOL/L (98-107) 103 MMOL/L (98-107) 103 MMOL/L (98-107) Carbon Dioxide Level 30 MMOL/L (21-32) 32 MMOL/L (21-32) 33 MMOL/L (21-32) Anion Gap 9 mmol/L (5-15) 5 mmol/L (5-15) 4 mmol/L (5-15) Blood Urea Nitrogen 18 mg/dL (7-18) 16 mg/dL (7-18) 17 mg/dL (7-18) Creatinine 0.8 MG/DL (0.55-1.30) 0.9 MG/DL (0.55-1.30) 0.8 MG/DL (0.55-1.30) Estimat Glomerular Filtration Rate mL/min (>60) mL/min (>60) mL/min (>60) Glucose Level 122 MG/DL (74-106) 116 MG/DL (74-106) 108 MG/DL (74-106) Calcium Level 9.8 MG/DL (8.5-10.1) 8.9 MG/DL (8.5-10.1) 9.1 MG/DL (8.5-10.1) Total Bilirubin 1.5 MG/DL (0.2-1.0) Direct Bilirubin 0.3 MG/DL (0.0-0.3) Aspartate Amino Transf (AST/SGOT) 20 U/L (15-37) Alanine Aminotransferase (ALT/SGPT) 13 U/L (12-78) Alkaline Phosphatase 180 U/L (46-116) Total Creatine Kinase 78 U/L (26-308) Creatine Kinase MB 1.4 NG/ML (0.0-3.6) Creatine Kinase MB Relative Index 1.7 Troponin I 0.003 ng/mL (0.000-0.056) 0.020 ng/mL (0.000-0.056) Total Protein 8.1 G/DL (6.4-8.2) Albumin 3.6 G/DL (3.4-5.0) Globulin 4.5 g/dL Albumin/Globulin Ratio 0.8 (1.0-2.7) Lipase 87 U/L (73-393) Urine Color Yellow Urine Appearance Clear Urine pH 5 (4.5-8.0) Urine Specific [place] 1.025 (1.005-1.035) Urine Protein 2+ (NEGATIVE) Urine Glucose (UA) Negative (NEGATIVE) Urine Ketones 1+ (NEGATIVE) Urine Occult Blood 1+ (NEGATIVE) Urine Nitrite Negative (NEGATIVE) Urine Bilirubin Negative (NEGATIVE) Urine Urobilinogen 1 MG/DL (0.0-1.0) Urine Leukocyte Esterase 1+ (NEGATIVE) Urine RBC 5-10 /HPF (0 - 0) Urine WBC 2-4 /HPF (0 - 0) Urine Squamous Epithelial Cells None /LPF (NONE/OCC) Urine Amorphous Sediment Few /LPF (NONE) Urine Bacteria Moderate /HPF (NONE) Phosphorus Level 3.3 MG/DL (2.5-4.9) Magnesium Level 1.8 MG/DL (1.8-2.4) Risk Assessment & Plan Assessment: asa4 Plan: mac Status Change Before Surgery: BESSY Miranda Oct 06, 2017 06:42
[2017-10-06 08:04] LABS: BASOPHILS % (AUTO) 0.3 % (0.0-2.0); HEMATOCRIT 37.8 % (42.0-52.0); HEMOGLOBIN 13.2 G/DL (14.2-18.0); LYMPHOCYTES % (AUTO) 8.1 % (20.0-45.0); MEAN CORPUSCULAR VOLUME 96 FL (80-99); MONOCYTES % (AUTO) 12.1 % (1.0-10.0); NEUTROPHILS % (AUTO) 79.5 % (45.0-75.0); PLATELET COUNT 126 K/UL (150-450); RED BLOOD COUNT 3.94 M/UL (4.70-6.10); RED CELL DISTRIBUTION WIDTH 12.3 % (11.6-14.8); WHITE BLOOD COUNT 8.9 K/UL (4.8-10.8)
[2017-10-06 08:08] LABS: ANION GAP 4 mmol/L (5-15); BLOOD UREA NITROGEN 17 mg/dL (7-18); CALCIUM 9.1 MG/DL (8.5-10.1); CARBON DIOXIDE 33 MMOL/L (21-32); CHLORIDE 103 MMOL/L (98-107); CREATININE 0.8 MG/DL (0.55-1.30); POTASSIUM 3.8 MMOL/L (3.5-5.1); SODIUM 140 MMOL/L (136-145)
[2017-10-06 08:33] LABS: INR 1.1 (0.9-1.1)
--- NOTE | 2017-10-06 08:45 | History and Physical Report ---
DATE OF ADMISSION: 10/04/2017 CHIEF COMPLAINT: The patient is an 81-year-old white male, who presents with a chief complaint of coffee-grounds emesis and abdominal pain. HISTORY OF PRESENT ILLNESS: The patient is a resident of rehabilitation center at [facility]. According to staff at rehabilitation center at [place], the patient experienced multiple episodes of coffee-ground emesis. The patient has a history of upper gastrointestinal bleed in the past. The patient was diagnosed with Berta-Hay tear versus hemorrhagic gastritis. The patient presented to [place] emergency room. The patient is admitted for upper gastrointestinal hemorrhage. PAST MEDICAL HISTORY: Significant for: 1. Dysphagia, status post PEG placement. 2. Brugada syndrome, status post failed ablation. 3. Hypertension. 4. Cerebrovascular disease. 5. Myelodysplastic disorder. 6. Benign prostatic hypertrophy. 7. Gastroesophageal reflux disease. PAST SURGICAL HISTORY: Significant for PEG placement. CURRENT MEDICATIONS: 1. Aspirin 81 mg per G-tube daily. 2. Cardura 1 mg per G-tube at each bedtime. 3. Clonazepam 0.25 mg p.o. q.6 hours p.r.n. anxiety. 4. Aricept 10 mg per G-tube at bedtime. 5. Lexapro 5 mg per G-tube daily. 6. Amlodipine 02:04. 7. Pepcid 20 mg per G-tube daily. 8. 02:18 10 mg per G-tube twice daily. 9. Protonix 40 mg per G-tube daily. ALLERGIES: No known drug allergies. SOCIAL HISTORY: The patient is single and lives at rehabilitation center at [place] as above. The patient denies tobacco or alcohol use. REVIEW OF SYSTEMS: 00:59. Unable to assess secondary to the patient's mental status. PHYSICAL EXAMINATION: VITAL SIGNS: Temperature 98.1, respirations 20, pulse 91, and blood pressure 153/74. GENERAL: The patient is a well-developed and well-nourished white male, in no apparent distress. HEENT: Eyes, pupils equal and responsive to light and accommodation. Extraocular movements intact. NECK: Supple without lymphadenopathy. CHEST: Lungs are clear to auscultation bilaterally without wheezes or rales. CARDIOVASCULAR: Regular rate. S1 and S2 are normal without murmurs, rubs, or gallops. ABDOMEN: Soft and nondistended with positive bowel sounds. There is pain to palpation in the epigastric region. There is no rebound or guarding noted. EXTREMITIES: Negative for clubbing, cyanosis, or edema. RECTAL/GENITAL: Refused. NEUROLOGIC: Cranial nerves II through XII are grossly intact without focal deficits. LABORATORY STUDIES: WBC 8.4, hemoglobin 15.8, platelets 158,000. Sodium 138, potassium 3.7, chloride 99, CO2 30, BUN 18, creatinine 0.8, glucose 122. Troponin 0.003. Urinalysis showed 1+ ketones, 1+ occult blood with 5 to 10 rbc. ASSESSMENT: This is an 81-year-old white male. 1. Upper gastrointestinal hemorrhage. 2. Hypertension. 3. Myelodysplastic disorder. 4. Benign prostatic hypertrophy. 5. Gastroesophageal reflux disease. 6. Brugada syndrome. 7. Cerebrovascular disease. TREATMENT: 1. Upper gastrointestinal hemorrhage. A Gastroenterology consultation was obtained with Dr. Simon Swanson. The patient will require endoscopy during this hospitalization. We will follow recommendations of Gastroenterology. The patient has been placed empirically on intravenous Protonix. 2. Hypertension. The patient is currently hypotensive. Hold antihypertensive medication. 3. Myelodysplastic disorder. 4. Benign prostatic hypertrophy. 5. Gastroesophageal reflux disease. Continue Protonix as above. 6. Brugada syndrome. 7. Cerebrovascular disease. Continue Cardura as above. 8. Depression. Continue Lexapro as above. Chidi Tyler M.D. DR: EDGARDO JOB#: [id number] CC:
[2017-10-06] MEDS ORDERED: Escitalopram Oxalate 5mg tab GT SCH (09:00)
[2017-10-06] MEDS ORDERED: NS 55ml IV ONE (09:00)
[2017-10-06] MEDS ORDERED: Propofol 200mg/20ml IV ONE (09:00)
[2017-10-06] MEDS ORDERED: Lidocaine 1% MPF 10mg/ml 5ml ONE (09:00)
--- NOTE | 2017-10-06 09:25 | Pre-Procedure Note/Attestation ---
Pre-Procedure Note/Attestation Complete Prior to Procedure Planned Procedure: not applicable Procedure Narrative: egd Indications for Procedure Pre-Operative Diagnosis: GIB Attestation I attest that I discussed the nature of the procedure; its benefits; risks and complications; and alternatives (and the risks and benefits of such alternatives ), prior to the procedure, with the patient (or the patient's legal installation service representative). I attest that, if there was a reasonable possibility of needing a blood transfusion, the patient (or the patient's legal installation service representative) was given the [facility] standardized written summary, pursuant to the Jeffrey Stephy Blood Safety Act ([place] Health and Safety Code # 1645, as amended). I attest that I re-evaluated the patient just prior to the surgery and that there has been no change in the patient's H&P, except as documented below: ALMA NARANJO Oct 06, 2017 09:25
--- NOTE | 2017-10-06 09:26 | General Progress Note ---
Assessment/Plan Problem List: (1) UGIB (upper gastrointestinal bleed) ICD Codes: K92.2 - Gastrointestinal hemorrhage, unspecified SNOMED: [id number] Assessment/Plan plan EGD today Subjective ROS Limited/Unobtainable: Yes Allergies: Coded Allergies: No Known Allergies (Unverified , 11/30/12) Objective Last 24 Hour Vital Signs Date Time Temp Pulse Resp B/P (MAP) Pulse Ox O2 Delivery O2 Flow Rate FiO2 10/06/17 04:10 98.7 84 19 119/69 97 Nasal Cannula 10/06/17 04:00 98 10/06/17 00:16 97.7 92 19 128/71 96 Nasal Cannula 10/06/17 00:00 93 10/05/17 20:52 98.8 93 19 129/71 96 Nasal Cannula 10/05/17 20:00 91 10/05/17 16:00 84 10/05/17 16:00 97.0 83 19 139/78 97 10/05/17 12:00 87 10/05/17 12:00 97.4 85 19 138/72 95 Intake and Output 10/05/17 10/06/17 19:00 07:00 Intake Total 431 ml 825 ml Balance 431 ml 825 ml IV Total 431 ml 825 ml Laboratory Tests 10/06/17 06:04: White Blood Count 8.9, Red Blood Count 3.94L, Hemoglobin 13.2L, Hematocrit 37.8L , Mean Corpuscular Volume 96, Mean Corpuscular Hemoglobin 33.5H, Mean Corpuscular Hemoglobin Concent 34.8, Red Cell Distribution Width 12.3, Platelet Count 126L, Mean Platelet Volume 8.4, Neutrophils (%) (Auto) 79.5H, Lymphocytes (%) (Auto) 8.1L, Monocytes (%) (Auto) 12.1H, Eosinophils (%) (Auto) 0.0, Basophils (%) (Auto) 0.3, Prothrombin Time 12.0H, Prothromb Time International Ratio 1.1, Activated Partial Thromboplast Time 30, Sodium Level 140, Potassium Level 3.8, Chloride Level 103, Carbon Dioxide Level 33H, Anion Gap 4L, Blood Urea Nitrogen 17, Creatinine 0.8, Estimat Glomerular Filtration Rate , Glucose Level 108H, Calcium Level 9.1 Height (Feet): 5 Height (Inches): 10.00 Weight (Pounds): 180 General Appearance: no apparent distress EENT: normal ENT inspection Neck: supple Cardiovascular: normal rate Respiratory/Chest: lungs clear Abdomen: normal bowel sounds, non tender, soft Extremities: non-tender ALMA NARANJO Oct 06, 2017 09:26
[2017-10-06] MEDS: Doxazosin 1mg Tab GT SCH (09:35)
[2017-10-06] MEDS: Escitalopram Oxalate 5mg tab GT SCH (09:35)
[2017-10-06] MEDS: NS IVPB PRN (09:36)
[2017-10-06] MEDS: CHLORPROMAZINE IVPB PRN (09:36)
[2017-10-06] MEDS: Pantoprazole Inj IVP SCH ×2 (09:36→20:46)
[2017-10-06] MEDS: Memantine 10mg tab GT SCH (09:36)
[2017-10-06] MEDS ORDERED: NS 500ML IV ONE (14:03)
--- NOTE | 2017-10-06 14:13 | Endoscopy Procedure Note ---
Endoscopy Procedure Note Indication for Procedure: GIB Procedures Performed: EGD Operative Findings/Diagnosis: GASTRITIS Specimen: yes Pt Tolerated Procedure Well: Yes Estimated Blood Loss: none Anesthesiologist: ENRIQUE Anesthesia: MAC Implant(s) used?: No 50 yrs or older w/o bx or poly: Not Applicable 10yrs. F/U not recommended: Not Applicable ALMA NARANJO Oct 06, 2017 14:13
[2017-10-06] MEDS ORDERED: DiphenhydrAMINE 50mg/ml Inj IVP PRN (14:30)
[2017-10-06] MEDS ORDERED: Midazolam 2mg/2ml Inj IVP PRN (14:30)
[2017-10-06] MEDS ORDERED: fentaNYL 100 mcg/2 mL IV PRN (14:30)
[2017-10-06] MEDS ORDERED: Atropine Inj 1mg/10ml Syr IV PRN (14:30)
--- NOTE | 2017-10-06 14:52 | Pulmonology Progress Note ---
Assessment/Plan Problems: (1) UGIB (upper gastrointestinal bleed) (2) Advanced dementia (3) Feeding by G-tube (4) Depression Assessment/Plan EGD today had a BM last night symptomatic treatment Subjective ROS Limited/Unobtainable: No Interval Events: had a BM last night Allergies: Coded Allergies: No Known Allergies (Unverified , 11/30/12) Objective Last 24 Hour Vital Signs Date Time Temp Pulse Resp B/P (MAP) Pulse Ox O2 Delivery O2 Flow Rate FiO2 10/06/17 08:00 97.0 83 19 127/63 94 Nasal Cannula 10/06/17 04:10 98.7 84 19 119/69 97 Nasal Cannula 10/06/17 04:00 98 10/06/17 00:16 97.7 92 19 128/71 96 Nasal Cannula 10/06/17 00:00 93 10/05/17 20:52 98.8 93 19 129/71 96 Nasal Cannula 10/05/17 20:00 91 10/05/17 16:00 84 10/05/17 16:00 97.0 83 19 139/78 97 Intake and Output 10/05/17 10/06/17 19:00 07:00 Intake Total 431 ml 825 ml Balance 431 ml 825 ml IV Total 431 ml 825 ml General Appearance: WD/WN HEENT: normocephalic Respiratory/Chest: chest wall non-tender, lungs clear Cardiovascular: normal peripheral pulses, normal rate Abdomen: normal bowel sounds, soft, non tender Genitourinary: normal external genitalia Extremities: no cyanosis Skin: no lesions Neurologic/Psychiatric: international marketing manager II-XII grossly normal Microbiology Date/Time Source Procedure Growth Status 10/04/17 20:40 Urine,Clean Catch Urine Culture - Preliminary NO GROWTH AFTER 24 HOURS Resulted 10/05/17 00:00 Rectum VRE Culture - Final Enterococcus Faecalis - Vre Complete Laboratory Tests 10/06/17 06:04: White Blood Count 8.9, Red Blood Count 3.94L, Hemoglobin 13.2L, Hematocrit 37.8L , Mean Corpuscular Volume 96, Mean Corpuscular Hemoglobin 33.5H, Mean Corpuscular Hemoglobin Concent 34.8, Red Cell Distribution Width 12.3, Platelet Count 126L, Mean Platelet Volume 8.4, Neutrophils (%) (Auto) 79.5H, Lymphocytes (%) (Auto) 8.1L, Monocytes (%) (Auto) 12.1H, Eosinophils (%) (Auto) 0.0, Basophils (%) (Auto) 0.3, Prothrombin Time 12.0H, Prothromb Time International Ratio 1.1, Activated Partial Thromboplast Time 30, Sodium Level 140, Potassium Level 3.8, Chloride Level 103, Carbon Dioxide Level 33H, Anion Gap 4L, Blood Urea Nitrogen 17, Creatinine 0.8, Estimat Glomerular Filtration Rate , Glucose Level 108H, Calcium Level 9.1 Current Medications Medications (Trade) Dose Ordered Sig/Abelino Route PRN Reason Start Time Stop Time Status Last Admin Dose Admin Acetaminophen (Tylenol) 650 mg Q4H PRN ORAL Mild Pain/Temp > 100.5 10/05/17 01:00 11/04/17 00:59 10/05/17 23:24 Al Hydroxide/Mg Hydroxide (Mylanta) 15 ml Q1H PRN ORAL gi upset 10/06/17 14:30 UNV Atropine Sulfate (Atropine) 0.5 mg Q5M PRN IV bpm less than 45 10/06/17 14:30 UNV Chlorpromazine 25 mg/Sodium Chloride 56 ml @ 110 mls/hr Q6H PRN IVPB HICCUPS 10/05/17 17:00 11/04/17 16:59 10/06/17 09:36 Clonazepam (KlonoPIN) 0.25 mg Q6H PRN GT For Anxiety 10/05/17 01:00 10/12/17 00:59 Dextrose/Sodium Chloride 1,000 ml @ 75 mls/hr [id number] IV 10/05/17 02:00 11/04/17 01:59 10/06/17 04:58 Diphenhydramine HCl (Benadryl) 25 mg Q15M PRN IVP Itching 10/06/17 14:30 UNV Doxazosin Mesylate (Cardura) 1 mg DAILY GT 10/05/17 09:00 11/04/17 08:59 10/06/17 09:35 Escitalopram Oxalate (Lexapro) 15 mg DAILY GT 10/06/17 09:00 11/05/17 08:59 10/06/17 09:35 Fentanyl Citrate (Sublimaze 100 mcg/2 mL) 25 mcg Q10M PRN IV Moderate Pain (Pain Scale 4-6) 10/06/17 14:30 UNV Hydralazine HCl (Apresoline) 5 mg Q30M PRN IV SBP>160 OR___/DBP>90 OR___ 10/06/17 14:30 UNV Memantine (Namenda) 10 mg DAILY GT 10/05/17 09:00 11/04/17 08:59 10/06/17 09:36 Midazolam HCl (Versed 2mg/2ml vial) 1 mg Q15M PRN IVP For Anxiety 10/06/17 14:30 UNV Morphine Sulfate (Morphine Sulfate) 2 mg Q4H PRN IV For Severe Pain 10/05/17 13:45 10/12/17 13:44 10/06/17 13:44 Ondansetron HCl (Zofran) 4 mg Q1H PRN IVP Nausea & Vomiting 10/06/17 14:30 UNV Ondansetron HCl (Zofran) 4 mg Q4H PRN IVP Nausea & Vomiting 10/05/17 01:00 11/04/17 00:59 Pantoprazole (Protonix) 40 mg EVERY 12 HOURS IVP 10/05/17 09:00 11/04/17 08:59 10/06/17 09:36 Polyethylene Glycol (Miralax) 17 gm DAILY PRN GT Constipation 10/05/17 01:00 11/04/17 00:59 10/05/17 02:11 Sodium Chloride 1,000 ml @ 10 mls/hr Q24H IVLG 10/06/17 14:28 10/06/17 16:27 UNV MECHE GARCIA Oct 06, 2017 14:52
--- NOTE | 2017-10-06 15:17 | Immediate Post-Op Evaluation ---
Immediate Post-Op Evalulation Immediate Post-Op Evalulation Procedure: egd Date of Evaluation: Oct 06, 2017 Time of Evaluation: 14:32 IV Fluids: 50ml 0.9ns Blood Products: none Estimated Blood Loss: negligible Blood Pressure Systolic: 111 Blood Pressure Diastolic: 62 Pulse Rate: 78 Respiratory Rate: 18 O2 Sat by Pulse Oximetry: 99 Temperature (Fahrenheit): 99.5 Pain Score (1-10): 0 Nausea: No Vomiting: No Complications none Patient Status: awake, reacts, patent Hydration Status: adequate Drug: BESSY Lane Oct 06, 2017 15:17
--- NOTE | 2017-10-06 15:19 | 48 Hour Post Anesthesia Eval ---
Post Anesthesia Evaluation Procedure: egd Date of Evaluation: Oct 06, 2017 Time of Evaluation: 14:34 Blood Pressure Systolic: 106 0: 61 Pulse Rate: 76 Respiratory Rate: 18 Temperature (Fahrenheit): 99.5 O2 Sat by Pulse Oximetry: 99 Airway: patent Nausea: No Vomiting: No Pain Intensity: 0 Hydration Status: adequate Cardiopulmonary Status: stable Mental Status/LOC: patient returned to baseline Post-Anesthesia Complications: none Follow-up care needed: N/A BESSY NEWMAN Oct 06, 2017 15:19
--- NOTE | 2017-10-06 15:31 | Internal Med Progress Note ---
Subjective Physician Name Willie Sanchez Attending Physician Willie Sanchez MD Current Medications Medications (Trade) Dose Ordered Sig/Abelino Route PRN Reason Start Time Stop Time Status Last Admin Dose Admin Acetaminophen (Tylenol) 650 mg Q4H PRN ORAL Mild Pain/Temp > 100.5 10/05/17 01:00 11/04/17 00:59 10/05/17 23:24 Al Hydroxide/Mg Hydroxide (Mylanta) 15 ml Q1H PRN ORAL gi upset 10/06/17 14:30 10/06/17 20:00 Atropine Sulfate (Atropine) 0.5 mg Q5M PRN IV bpm less than 45 10/06/17 14:30 10/06/17 20:00 Chlorpromazine 25 mg/Sodium Chloride 56 ml @ 110 mls/hr Q6H PRN IVPB HICCUPS 10/05/17 17:00 11/04/17 16:59 10/06/17 09:36 Clonazepam (KlonoPIN) 0.25 mg Q6H PRN GT For Anxiety 10/05/17 01:00 10/12/17 00:59 Dextrose/Sodium Chloride 1,000 ml @ 75 mls/hr [id number] IV 10/05/17 02:00 11/04/17 01:59 10/06/17 04:58 Diphenhydramine HCl (Benadryl) 25 mg Q15M PRN IVP Itching 10/06/17 14:30 10/06/17 20:00 Doxazosin Mesylate (Cardura) 1 mg DAILY GT 10/05/17 09:00 11/04/17 08:59 10/06/17 09:35 Escitalopram Oxalate (Lexapro) 15 mg DAILY GT 10/06/17 09:00 11/05/17 08:59 10/06/17 09:35 Fentanyl Citrate (Sublimaze 100 mcg/2 mL) 25 mcg Q10M PRN IV Moderate Pain (Pain Scale 4-6) 10/06/17 14:30 10/06/17 20:00 Hydralazine HCl (Apresoline) 5 mg Q30M PRN IV SBP>160 OR___/DBP>90 OR___ 10/06/17 14:30 10/06/17 20:00 Memantine (Namenda) 10 mg DAILY GT 10/05/17 09:00 11/04/17 08:59 10/06/17 09:36 Midazolam HCl (Versed 2mg/2ml vial) 1 mg Q15M PRN IVP For Anxiety 10/06/17 14:30 10/06/17 20:00 Morphine Sulfate (Morphine Sulfate) 2 mg Q4H PRN IV For Severe Pain 10/05/17 13:45 10/12/17 13:44 10/06/17 13:44 Ondansetron HCl (Zofran) 4 mg Q1H PRN IVP Nausea & Vomiting 10/06/17 14:30 10/06/17 20:00 Ondansetron HCl (Zofran) 4 mg Q4H PRN IVP Nausea & Vomiting 10/05/17 01:00 11/04/17 00:59 Pantoprazole (Protonix) 40 mg EVERY 12 HOURS IVP 10/05/17 09:00 11/04/17 08:59 10/06/17 09:36 Polyethylene Glycol (Miralax) 17 gm DAILY PRN GT Constipation 10/05/17 01:00 11/04/17 00:59 10/05/17 02:11 Sodium Chloride 1,000 ml @ 10 mls/hr Q24H IVLG 10/06/17 14:28 10/06/17 20:00 Allergies: Coded Allergies: No Known Allergies (Unverified , 11/30/12) Subjective awake, responsive, NAD, C/O hiccups Objective Last Vital Signs Date Time Temp Pulse Resp B/P (MAP) Pulse Ox O2 Delivery O2 Flow Rate FiO2 10/06/17 15:17 78 18 99 10/06/17 14:55 99.0 117/69 Nasal Cannula 4.0 Laboratory Tests Test 10/06/17 06:04 White Blood Count 8.9 K/UL (4.8-10.8) Red Blood Count 3.94 M/UL (4.70-6.10) L Hemoglobin 13.2 G/DL (14.2-18.0) L Hematocrit 37.8 % (42.0-52.0) L Mean Corpuscular Volume 96 FL (80-99) Mean Corpuscular Hemoglobin 33.5 PG (27.0-31.0) H Mean Corpuscular Hemoglobin Concent 34.8 G/DL (32.0-36.0) Red Cell Distribution Width 12.3 % (11.6-14.8) Platelet Count 126 K/UL (150-450) L Mean Platelet Volume 8.4 FL (6.5-10.1) Neutrophils (%) (Auto) 79.5 % (45.0-75.0) H Lymphocytes (%) (Auto) 8.1 % (20.0-45.0) L Monocytes (%) (Auto) 12.1 % (1.0-10.0) H Eosinophils (%) (Auto) 0.0 % (0.0-3.0) Basophils (%) (Auto) 0.3 % (0.0-2.0) Prothrombin Time 12.0 SEC (9.30-11.50) H Prothromb Time International Ratio 1.1 (0.9-1.1) Activated Partial Thromboplast Time 30 SEC (23-33) Sodium Level 140 MMOL/L (136-145) Potassium Level 3.8 MMOL/L (3.5-5.1) Chloride Level 103 MMOL/L (98-107) Carbon Dioxide Level 33 MMOL/L (21-32) H Anion Gap 4 mmol/L (5-15) L Blood Urea Nitrogen 17 mg/dL (7-18) Creatinine 0.8 MG/DL (0.55-1.30) Estimat Glomerular Filtration Rate mL/min (>60) Glucose Level 108 MG/DL (74-106) H Calcium Level 9.1 MG/DL (8.5-10.1) Microbiology Date/Time Source Procedure Growth Status 10/04/17 20:40 Urine,Clean Catch Urine Culture - Preliminary NO GROWTH AFTER 24 HOURS Resulted 10/05/17 00:00 Rectum VRE Culture - Final Enterococcus Faecalis - Vre Complete Intake and Output 10/05/17 10/06/17 19:00 07:00 Intake Total 431 ml 825 ml Balance 431 ml 825 ml IV Total 431 ml 825 ml Objective General: No acute distress, awake and alert HEENT: NCAT, sclera anicteric, PERRL, EOMI. Neck: Supple, no significant jugular venous distention, Lungs: Fair inspiratory effort, decrease air on bases, no Wheeze or Rales. Heart: Regular rate and rhythm, normal S1/S2, no murmurs Abdomen: soft, generalized tenderness, massive distended. hypoactive bowel sounds. + PEG. Extremities: No Cyanosis , clubbing or edema. Neuro: A&O x 3, Able to move all extremities Skin: warm, no rashes or lesions Psych: Normal mood and affect Assessment/Plan Assessment/Plan 1. Upper gastrointestinal hemorrhage s/p EGD: Gastritis 2. Hypertension. 3. Myelodysplastic disorder. 4. Benign prostatic hypertrophy. 5. Gastroesophageal reflux disease. 6. Brugada syndrome. 7. Cerebrovascular disease. Plan: Mg citrate Via PEG X 1 dose monitor Labs F/U Dr. Swanson recommendation Full code Willie Sanchez MD Oct 06, 2017 15:31
--- NOTE | 2017-10-06 16:06 | Infectious Diseases Prog Note ---
Assessment/Plan Assessment/Plan Assessment: UGIB 2ry to gastritis (s/p EGD 10/06) Possible Ileus -Abd xray: Moderate stool retention. Generalized small bowel dilatation. Ileus suspected. Please correlate clinically. Bowel obstruction not entirely excludable. Afebrile, no leukocytosis- no evidence of active infectious process -u/a no pyuria, nit neg, leuk +1; ucx NTD; has chronic dysuria- this argues against UTI -CXR: Vascularity and reticular markings are prominent within the lungs. Heart size is normal. Basilar atelectasis demonstrate HTN Advance Dementia Dysphagia s/p Gtube MDD bedbound hiccups residential resident Plan: -Continue to monitor off abx -10/05 SP Zosyn #1 -f/u cx -Monitor CBC/BMP, temperatures -GI f/u -Aspiration precautions Thank you for this consultation. Will continue to follow along with you. Discussed with RN and family at bedside. Subjective Allergies: Coded Allergies: No Known Allergies (Unverified , 11/30/12) Subjective afebrile no leukocytosis Ucx NTD s/p EGD w/ gastritis Objective Vital Signs Last 24 Hour Vital Signs Date Time Temp Pulse Resp B/P (MAP) Pulse Ox O2 Delivery O2 Flow Rate FiO2 10/06/17 15:19 76 18 99 10/06/17 15:17 78 18 99 10/06/17 14:55 99.0 76 16 117/69 94 Nasal Cannula 4.0 10/06/17 14:45 74 18 108/61 94 Nasal Cannula 4.0 10/06/17 14:30 76 15 106/61 93 Nasal Cannula 4.0 10/06/17 14:25 82 16 112/60 93 Simple Mask 6.0 10/06/17 14:20 99.2 78 15 111/62 92 Simple Mask 6.0 10/06/17 08:00 97.0 83 19 127/63 94 Nasal Cannula 10/06/17 04:10 98.7 84 19 119/69 97 Nasal Cannula 10/06/17 04:00 98 10/06/17 00:16 97.7 92 19 128/71 96 Nasal Cannula 10/06/17 00:00 93 10/05/17 20:52 98.8 93 19 129/71 96 Nasal Cannula 10/05/17 20:00 91 Height (Feet): 5 Height (Inches): 10.00 Weight (Pounds): 180 Objective General Appearance: cachetic Lines, tubes and drains: peripheral HEENT: normocephalic, atraumatic Neck: non-tender, normal alignment Respiratory/Chest: chest wall non-tender, lungs clear Breasts: no masses Cardiovascular/Chest: normal peripheral pulses Abdomen: normal bowel sounds, distended adomen, mild epigastric TTP, PEG tube in place Skin Exam: normal pigmentation Microbiology Date/Time Source Procedure Growth Status 10/04/17 20:40 Urine,Clean Catch Urine Culture - Preliminary NO GROWTH AFTER 24 HOURS Resulted 10/05/17 00:00 Rectum VRE Culture - Final Enterococcus Faecalis - Vre Complete Laboratory Tests Test 10/06/17 06:04 White Blood Count 8.9 K/UL (4.8-10.8) Red Blood Count 3.94 M/UL (4.70-6.10) L Hemoglobin 13.2 G/DL (14.2-18.0) L Hematocrit 37.8 % (42.0-52.0) L Mean Corpuscular Volume 96 FL (80-99) Mean Corpuscular Hemoglobin 33.5 PG (27.0-31.0) H Mean Corpuscular Hemoglobin Concent 34.8 G/DL (32.0-36.0) Red Cell Distribution Width 12.3 % (11.6-14.8) Platelet Count 126 K/UL (150-450) L Mean Platelet Volume 8.4 FL (6.5-10.1) Neutrophils (%) (Auto) 79.5 % (45.0-75.0) H Lymphocytes (%) (Auto) 8.1 % (20.0-45.0) L Monocytes (%) (Auto) 12.1 % (1.0-10.0) H Eosinophils (%) (Auto) 0.0 % (0.0-3.0) Basophils (%) (Auto) 0.3 % (0.0-2.0) Prothrombin Time 12.0 SEC (9.30-11.50) H Prothromb Time International Ratio 1.1 (0.9-1.1) Activated Partial Thromboplast Time 30 SEC (23-33) Sodium Level 140 MMOL/L (136-145) Potassium Level 3.8 MMOL/L (3.5-5.1) Chloride Level 103 MMOL/L (98-107) Carbon Dioxide Level 33 MMOL/L (21-32) H Anion Gap 4 mmol/L (5-15) L Blood Urea Nitrogen 17 mg/dL (7-18) Creatinine 0.8 MG/DL (0.55-1.30) Estimat Glomerular Filtration Rate mL/min (>60) Glucose Level 108 MG/DL (74-106) H Calcium Level 9.1 MG/DL (8.5-10.1) Current Medications Medications (Trade) Dose Ordered Sig/Abelino Route PRN Reason Start Time Stop Time Status Last Admin Dose Admin Acetaminophen (Tylenol) 650 mg Q4H PRN ORAL Mild Pain/Temp > 100.5 10/05/17 01:00 11/04/17 00:59 10/05/17 23:24 Al Hydroxide/Mg Hydroxide (Mylanta) 15 ml Q1H PRN ORAL gi upset 10/06/17 14:30 10/06/17 20:00 Atropine Sulfate (Atropine) 0.5 mg Q5M PRN IV bpm less than 45 10/06/17 14:30 10/06/17 20:00 Chlorpromazine 25 mg/Sodium Chloride 56 ml @ 110 mls/hr Q6H PRN IVPB HICCUPS 10/05/17 17:00 11/04/17 16:59 10/06/17 09:36 Clonazepam (KlonoPIN) 0.25 mg Q6H PRN GT For Anxiety 10/05/17 01:00 10/12/17 00:59 Dextrose/Sodium Chloride 1,000 ml @ 75 mls/hr [id number] IV 10/05/17 02:00 11/04/17 01:59 10/06/17 04:58 Diphenhydramine HCl (Benadryl) 25 mg Q15M PRN IVP Itching 10/06/17 14:30 10/06/17 20:00 Doxazosin Mesylate (Cardura) 1 mg DAILY GT 10/05/17 09:00 11/04/17 08:59 10/06/17 09:35 Escitalopram Oxalate (Lexapro) 15 mg DAILY GT 10/06/17 09:00 11/05/17 08:59 10/06/17 09:35 Fentanyl Citrate (Sublimaze 100 mcg/2 mL) 25 mcg Q10M PRN IV Moderate Pain (Pain Scale 4-6) 10/06/17 14:30 10/06/17 20:00 Hydralazine HCl (Apresoline) 5 mg Q30M PRN IV SBP>160 OR___/DBP>90 OR___ 10/06/17 14:30 10/06/17 20:00 Magnesium Citrate (Citrate Of Magnesia) 300 ml ONCE ONCE GT 10/06/17 16:30 10/06/17 16:31 10/06/17 15:58 Memantine (Namenda) 10 mg DAILY GT 10/05/17 09:00 11/04/17 08:59 10/06/17 09:36 Midazolam HCl (Versed 2mg/2ml vial) 1 mg Q15M PRN IVP For Anxiety 10/06/17 14:30 10/06/17 20:00 Morphine Sulfate (Morphine Sulfate) 2 mg Q4H PRN IV For Severe Pain 10/05/17 13:45 10/12/17 13:44 10/06/17 13:44 Ondansetron HCl (Zofran) 4 mg Q1H PRN IVP Nausea & Vomiting 10/06/17 14:30 10/06/17 20:00 Ondansetron HCl (Zofran) 4 mg Q4H PRN IVP Nausea & Vomiting 10/05/17 01:00 11/04/17 00:59 Pantoprazole (Protonix) 40 mg EVERY 12 HOURS IVP 10/05/17 09:00 11/04/17 08:59 10/06/17 09:36 Polyethylene Glycol (Miralax) 17 gm DAILY PRN GT Constipation 10/05/17 01:00 11/04/17 00:59 10/05/17 02:11 Sodium Chloride 1,000 ml @ 10 mls/hr Q24H IVLG 10/06/17 14:28 10/06/17 20:00 Jennifer Lomeli M.D. Oct 06, 2017 16:06
[2017-10-06] MEDS ORDERED: Magnesium Citrate Liq Btl GT ONE (16:30)
--- NOTE | 2017-10-06 18:07 | Cardiology Progress Note ---
Assessment/Plan Assessment/Plan [id number] cp with hs of same for long time per [facility] record with only min cad per repropt all trop neg brugada syndroem failed ablation no sig arrythmia per record gastritis / gib cva hs dx family Objective Last 24 Hour Vital Signs Date Time Temp Pulse Resp B/P (MAP) Pulse Ox O2 Delivery O2 Flow Rate FiO2 10/06/17 16:00 98.2 75 18 125/61 94 Nasal Cannula 4.0 10/06/17 15:19 76 18 99 10/06/17 15:17 78 18 99 10/06/17 14:55 99.0 76 16 117/69 94 Nasal Cannula 4.0 10/06/17 14:45 74 18 108/61 94 Nasal Cannula 4.0 10/06/17 14:30 76 15 106/61 93 Nasal Cannula 4.0 10/06/17 14:25 82 16 112/60 93 Simple Mask 6.0 10/06/17 14:20 99.2 78 15 111/62 92 Simple Mask 6.0 10/06/17 12:00 83 10/06/17 08:00 84 10/06/17 08:00 97.0 83 19 127/63 94 Nasal Cannula 10/06/17 04:10 98.7 84 19 119/69 97 Nasal Cannula 10/06/17 04:00 98 10/06/17 00:16 97.7 92 19 128/71 96 Nasal Cannula 10/06/17 00:00 93 10/05/17 20:52 98.8 93 19 129/71 96 Nasal Cannula 10/05/17 20:00 91 Intake and Output 10/05/17 10/06/17 19:00 07:00 Intake Total 431 ml 825 ml Balance 431 ml 825 ml IV Total 431 ml 825 ml Laboratory Tests Test 10/06/17 06:04 White Blood Count 8.9 K/UL (4.8-10.8) Red Blood Count 3.94 M/UL (4.70-6.10) L Hemoglobin 13.2 G/DL (14.2-18.0) L Hematocrit 37.8 % (42.0-52.0) L Mean Corpuscular Volume 96 FL (80-99) Mean Corpuscular Hemoglobin 33.5 PG (27.0-31.0) H Mean Corpuscular Hemoglobin Concent 34.8 G/DL (32.0-36.0) Red Cell Distribution Width 12.3 % (11.6-14.8) Platelet Count 126 K/UL (150-450) L Mean Platelet Volume 8.4 FL (6.5-10.1) Neutrophils (%) (Auto) 79.5 % (45.0-75.0) H Lymphocytes (%) (Auto) 8.1 % (20.0-45.0) L Monocytes (%) (Auto) 12.1 % (1.0-10.0) H Eosinophils (%) (Auto) 0.0 % (0.0-3.0) Basophils (%) (Auto) 0.3 % (0.0-2.0) Prothrombin Time 12.0 SEC (9.30-11.50) H Prothromb Time International Ratio 1.1 (0.9-1.1) Activated Partial Thromboplast Time 30 SEC (23-33) Sodium Level 140 MMOL/L (136-145) Potassium Level 3.8 MMOL/L (3.5-5.1) Chloride Level 103 MMOL/L (98-107) Carbon Dioxide Level 33 MMOL/L (21-32) H Anion Gap 4 mmol/L (5-15) L Blood Urea Nitrogen 17 mg/dL (7-18) Creatinine 0.8 MG/DL (0.55-1.30) Estimat Glomerular Filtration Rate mL/min (>60) Glucose Level 108 MG/DL (74-106) H Calcium Level 9.1 MG/DL (8.5-10.1) Microbiology Date/Time Source Procedure Growth Status 10/04/17 20:40 Urine,Clean Catch Urine Culture - Preliminary NO GROWTH AFTER 24 HOURS Resulted 10/05/17 00:00 Rectum VRE Culture - Final Enterococcus Faecalis - Vre Complete BRI VASQUES Oct 06, 2017 18:07
--- NOTE | 2017-10-06 19:01 | Procedure Note ---
DATE OF PROCEDURE: 10/06/2017 SURGEON: Simon Swanson M.D. PROCEDURE: Upper endoscopy with biopsy. ANESTHESIOLOGIST: Anita Byrnes M.D. INSTRUMENT: Olympus adult flexible upper endoscope. INDICATION: Upper gastrointestinal bleeding. REASON FOR PROCEDURE: The procedure, risks, benefits, and possible consequences, including hemorrhage, aspiration, perforation and infection, and alternative treatments, were explained to the patient/legal guardian by Dr. Simon Swanson and the patient/legal guardian understood and accepted these risks. DESCRIPTION OF PROCEDURE: After informed consent was obtained and the patient was adequately sedated, first Olympus upper endoscope was advanced from mouth into the second portion of the duodenum and retroflexion was performed in the stomach. The patient had evidence of diffuse gastritis. No evidence of any active ulcerations or bleeding at this time. We pushed the G-tube in. There was a little bit of inflammation around the G-tube site, but no active bleeding at this time. Random biopsy from antrum was obtained to rule out H. pylori infection. At this time, the upper endoscope was retrieved and the procedure was terminated. SUMMARY OF FINDINGS: 1. Diffuse gastritis status post biopsy. 2. Inflammation around the G-tube site without any active bleeding. RECOMMENDATIONS: 1. Follow up biopsies and treat accordingly. 2. We will resume G-tube feeding. I want to thank, Dr. Willie Sanchez, for this kind referral. Simon Swanson M.D. DR: KALA JOB#: [id number] CC: Willie Sanchez M.D.; Fax#: [phone]
[2017-10-07 00:19] VITALS: BP 133/65
--- NOTE | 2017-10-07 01:00 | Consultation ---
DATE OF CONSULTATION: 10/06/2017 CARDIOLOGY CONSULTATION CONSULTING PHYSICIAN: Norbert Leslie M.D. REFERRING PHYSICIAN: Lexa Hood M.D. REASON FOR REFERRAL: Chest pain. HISTORY OF PRESENT ILLNESS: This is an elderly gentleman, who is a resident of a convalescent facility. Information is obtained from the patient directly discussing with the patient as well as review of the [facility] records and from his family members. He seems to have had several days of constant pain although he subsequently indicates his pain has been even longer period of time. His family members feel that discomfort is only a few days in duration but that is constantly present. No relieving or exacerbating factor has been identified by the patient. There is no PND or orthopnea. He uses one pillow. There is no dizziness or lightheadedness. He is not ambulatory. He is basically bed bound according to himself cannot walk much. PAST MEDICAL HISTORY: Positive for history of mild coronary artery disease previously, history of Brugada syndrome with history of recurrent supraventricular tachycardia, previous catheter ablation, which have been unsuccessful apparently the rhythm has been despite stable without any evidence of significant arrhythmias and has a history of hyperlipidemia as well according to prior charts. It is indicated by Dr. Whitt, his admissions manager rn that he has had previous recurrent chest pains with angiographically minimal coronary disease and history of palpitations and history of progressive dementia as well as pneumonia, respiratory failure, sepsis, dehydration, dysphagia, depression and systemic hypertension. 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 He has had a history of bowel or bladder incontinence. He has failure to thrive and he got influenza infection on prior occasions and possibility of myelodysplastic syndrome according to some of the records in the chart also but that is not completely clear either because I cannot find that information in the patient's [facility] records. ALLERGIES: There is no allergies to medications. SOCIAL HISTORY: He resides in a convalescent facility. Does not smoke at the present time. Does not drink at the present time. REVIEW OF SYSTEMS: GASTROINTESTINAL: He has had nausea and vomiting. No bloody vomiting apparently or bloody stools of some kind. Endoscopy was performed during this hospitalization with gastritis on preliminary report. GENITOURINARY: He does have occasional discomfort on urination. PULMONARY: He has hiccups and occasional coughing and congestion. CONSTITUTIONAL: Negative. PHYSICAL EXAMINATION: GENERAL: An elderly gentleman, in no respiratory distress. NECK: Supple. No jugular venous distention. LUNGS: Clear to auscultation and percussion. CARDIAC EXAMINATION: S1 is normal. S2 is normal. Regular rate and rhythm. No heaves, thrills, gallops, or rubs are noted. ABDOMEN: Soft and nontender. Positive bowel sounds. G-tube is in place. EXTREMITIES: There is no edema. NEUROLOGIC: He is awake, alert, responsive, and in no apparent respiratory distress. LABORATORY AND DIAGNOSTIC DATA: White count 8.9, hemoglobin 13.2, and platelet count of 126. Sodium is 140, potassium 3.8, chloride 103, bicarbonate 33, BUN is 17, creatinine 0.8, and glucose of 108 to 122. All troponins are negative since admission. His coags INR 1.1 and a PTT of 32. Urinalysis 5 to 10 RBCs and 2 to 4 WBCs. Chest x-ray was performed that showed possible interstitial edema, noncardiogenic causes basal atelectasis. Abdominal x-ray shows moderate stool retention, generalized small bowel dilatation ileus suspected. ASSESSMENT: 1. Chest pain, atypical with history of the same chronic myocardial infarction. 2. History of Brugada syndrome with failed ablation with no significant arrhythmias. 3. Gastrostomy tube dependence. 4. Gastrointestinal bleeding possibly secondary to gastritis based on findings of the endoscopy. 5. Dementia. 6. Dysphagia. 7. Cerebrovascular accident. 8. Semiovale. PLAN: The patient was seen in cardiac consultation. The patient's EKG one set was negative. There was actually two sets one from the paramedics also appears to be fairly unremarkable in direct comparison with the patient's EKG done at [facility] that last on May appears to be relatively unchanged. Repeat EKG will be performed and reviewed. Two sets of cardiac enzymes will be ordered as well. I suspect his pain possibly related to gastritis by the findings however does have chronic discomfort. Norbert Leslie M.D. DR: RAMBO JOB#: [id number] CC:
[2017-10-07 04:36] VITALS: BP 138/70
[2017-10-07] MEDS: D5 1/2NS 1,000 ML IV SCH (07:20)
[2017-10-07 08:02] LABS: BASOPHILS % (AUTO) 0.6 % (0.0-2.0); EOSINOPHILS % (AUTO) 0.1 % (0.0-3.0); HEMATOCRIT 38.3 % (42.0-52.0); HEMOGLOBIN 12.8 G/DL (14.2-18.0); LYMPHOCYTES % (AUTO) 12.5 % (20.0-45.0); MEAN CORPUSCULAR VOLUME 96 FL (80-99); MONOCYTES % (AUTO) 12.3 % (1.0-10.0); NEUTROPHILS % (AUTO) 74.6 % (45.0-75.0); PLATELET COUNT 118 K/UL (150-450); RED BLOOD COUNT 4.01 M/UL (4.70-6.10); RED CELL DISTRIBUTION WIDTH 11.8 % (11.6-14.8)
[2017-10-07 08:17] VITALS: BP 140/70
[2017-10-07 08:33] LABS: ALANINE AMINOTRANSFERASE 18 U/L (12-78); ALBUMIN 2.7 G/DL (3.4-5.0); ALBUMIN/GLOBULIN RATIO 0.7 (1.0-2.7); ALKALINE PHOSPHATASE 99 U/L (46-116); ANION GAP 4 mmol/L (5-15); ASPARTATE AMINO TRANSFERASE 15 U/L (15-37); BILIRUBIN,TOTAL 1.6 MG/DL (0.2-1.0); BLOOD UREA NITROGEN 15 mg/dL (7-18); CALCIUM 8.9 MG/DL (8.5-10.1); CARBON DIOXIDE 33 MMOL/L (21-32); CHLORIDE 103 MMOL/L (98-107); CREATININE 0.7 MG/DL (0.55-1.30); POTASSIUM 3.9 MMOL/L (3.5-5.1); SODIUM 140 MMOL/L (136-145)
[2017-10-07 08:36] LABS: PHOSPHORUS 2.4 MG/DL (2.5-4.9)
[2017-10-07 08:37] LABS: BILIRUBIN,DIRECT 0.3 MG/DL (0.0-0.3)
--- NOTE | 2017-10-07 08:50 | Pulmonology Progress Note ---
Assessment/Plan Problems: (1) UGIB (upper gastrointestinal bleed) (2) Advanced dementia (3) Feeding by G-tube (4) Depression Assessment/Plan EGD showed gastritis tolerating feeding H/h fairly stable add biotin symptomatic treatment med/surg check electroltyes Subjective ROS Limited/Unobtainable: No Interval Events: egd report reviewed Constitutional: Reports: no symptoms HEENT: Repors: no symptoms Respiratory: Reports: no symptoms Allergies: Coded Allergies: No Known Allergies (Unverified , 11/30/12) Objective Last 24 Hour Vital Signs Date Time Temp Pulse Resp B/P (MAP) Pulse Ox O2 Delivery O2 Flow Rate FiO2 10/07/17 08:17 98.1 74 18 140/70 94 Nasal Cannula 10/07/17 04:36 98.1 78 19 138/70 94 Nasal Cannula 10/07/17 04:00 74 10/07/17 00:19 97.9 84 20 133/65 93 Nasal Cannula 10/07/17 00:00 88 10/06/17 20:12 98.8 80 20 125/63 94 Nasal Cannula 10/06/17 20:00 81 10/06/17 16:00 73 10/06/17 16:00 98.2 75 18 125/61 94 Nasal Cannula 4.0 10/06/17 15:19 76 18 99 10/06/17 15:17 78 18 99 10/06/17 14:55 99.0 76 16 117/69 94 Nasal Cannula 4.0 10/06/17 14:45 74 18 108/61 94 Nasal Cannula 4.0 10/06/17 14:30 76 15 106/61 93 Nasal Cannula 4.0 10/06/17 14:25 82 16 112/60 93 Simple Mask 6.0 10/06/17 14:20 99.2 78 15 111/62 92 Simple Mask 6.0 10/06/17 12:00 83 Intake and Output 10/06/17 10/07/17 19:00 07:00 Intake Total 886 ml 900 ml Balance 886 ml 900 ml IV Total 886 ml 900 ml General Appearance: cachetic HEENT: normocephalic, anicteric Respiratory/Chest: chest wall non-tender, lungs clear Cardiovascular: normal peripheral pulses, normal rate Abdomen: normal bowel sounds, soft, non tender Genitourinary: normal external genitalia Extremities: no cyanosis Skin: no ulcers Microbiology Date/Time Source Procedure Growth Status 10/05/17 00:00 Nasal Nares MRSA Culture - Final Staphylococcus Aureus - Mrsa Complete 10/04/17 20:40 Urine,Clean Catch Urine Culture - Final NO GROWTH AFTER 48 HOURS Complete 10/05/17 00:00 Rectum VRE Culture - Final Enterococcus Faecalis - Vre Complete Laboratory Tests 10/07/17 07:10: White Blood Count 7.0, Red Blood Count 4.01L, Hemoglobin 12.8L, Hematocrit 38.3L , Mean Corpuscular Volume 96, Mean Corpuscular Hemoglobin 32.0H, Mean Corpuscular Hemoglobin Concent 33.5, Red Cell Distribution Width 11.8, Platelet Count 118L, Mean Platelet Volume 8.8, Neutrophils (%) (Auto) 74.6, Lymphocytes ( %) (Auto) 12.5L, Monocytes (%) (Auto) 12.3H, Eosinophils (%) (Auto) 0.1, Basophils (%) (Auto) 0.6, Sodium Level 140, Potassium Level 3.9, Chloride Level 103, Carbon Dioxide Level 33H, Anion Gap 4L, Blood Urea Nitrogen 15, Creatinine 0.7, Estimat Glomerular Filtration Rate , Glucose Level 108H, Calcium Level 8.9 , Phosphorus Level 2.4L, Magnesium Level 2.2, Total Bilirubin 1.6H, Direct Bilirubin 0.3, Aspartate Amino Transf (AST/SGOT) 15, Alanine Aminotransferase ( ALT/SGPT) 18, Alkaline Phosphatase 99, Troponin I [Pending], Total Protein 6.7, Albumin 2.7L, Globulin 4.0, Albumin/Globulin Ratio 0.7L Current Medications Medications (Trade) Dose Ordered Sig/Abelino Route PRN Reason Start Time Stop Time Status Last Admin Dose Admin Acetaminophen (Tylenol) 650 mg Q4H PRN ORAL Mild Pain/Temp > 100.5 10/05/17 01:00 11/04/17 00:59 10/05/17 23:24 Chlorpromazine 25 mg/Sodium Chloride 56 ml @ 110 mls/hr Q6H PRN IVPB HICCUPS 10/05/17 17:00 11/04/17 16:59 10/06/17 09:36 Clonazepam (KlonoPIN) 0.25 mg Q6H PRN GT For Anxiety 10/05/17 01:00 10/12/17 00:59 Dextrose/Sodium Chloride 1,000 ml @ 75 mls/hr [id number] IV 10/05/17 02:00 11/04/17 01:59 10/07/17 07:20 Doxazosin Mesylate (Cardura) 1 mg DAILY GT 10/05/17 09:00 11/04/17 08:59 10/06/17 09:35 Escitalopram Oxalate (Lexapro) 15 mg DAILY GT 10/06/17 09:00 11/05/17 08:59 10/06/17 09:35 Memantine (Namenda) 10 mg DAILY GT 10/05/17 09:00 11/04/17 08:59 10/06/17 09:36 Morphine Sulfate (Morphine Sulfate) 2 mg Q4H PRN IV For Severe Pain 10/05/17 13:45 10/12/17 13:44 10/06/17 13:44 Ondansetron HCl (Zofran) 4 mg Q4H PRN IVP Nausea & Vomiting 10/05/17 01:00 11/04/17 00:59 Pantoprazole (Protonix) 40 mg EVERY 12 HOURS IVP 10/05/17 09:00 11/04/17 08:59 10/06/17 20:46 Polyethylene Glycol (Miralax) 17 gm DAILY PRN GT Constipation 10/05/17 01:00 11/04/17 00:59 10/05/17 02:11 MECHE GARCIA Oct 07, 2017 08:50
[2017-10-07] MEDS: Memantine 10mg tab GT SCH (09:06)
[2017-10-07] MEDS: Escitalopram Oxalate 5mg tab GT SCH (09:06)
[2017-10-07] MEDS: Doxazosin 1mg Tab GT SCH (09:06)
[2017-10-07] MEDS: Pantoprazole Inj IVP SCH (09:06)
[2017-10-07 12:20] VITALS: BP 137/65
[2017-10-07] MEDS ORDERED: clonazePAM 0.5mg tab GT PRN (13:00)
[2017-10-07] MEDS ORDERED: D5 1/2NS 1,000 ML IV SCH (13:00)
[2017-10-07] MEDS ORDERED: Morphine Sulfate 2mg/ml Inj IV PRN (13:45)
--- NOTE | 2017-10-07 13:52 | Infectious Diseases Prog Note ---
Assessment/Plan Assessment/Plan Assessment: UGIB 2ry to gastritis (s/p EGD 10/06) Possible Ileus -Abd xray: Moderate stool retention. Generalized small bowel dilatation. Ileus suspected. Please correlate clinically. Bowel obstruction not entirely excludable. Afebrile, no leukocytosis- no evidence of active infectious process -u/a no pyuria, nit neg, leuk +1; ucx NTD; has chronic dysuria- this argues against UTI -CXR: Vascularity and reticular markings are prominent within the lungs. Heart size is normal. Basilar atelectasis demonstrate HTN Advance Dementia Dysphagia s/p Gtube MDD bedbound hiccups longterm resident Plan: -Continue to monitor off abx -10/05 SP Mariselasyn #1 -f/u cx -Monitor CBC/BMP, temperatures -GI f/u -Aspiration precautions Subjective Constitutional: Denies: no symptoms, fever, chills, fatigue, anorexia, drenching sweats, other Allergies: Coded Allergies: No Known Allergies (Unverified , 11/30/12) Objective Vital Signs Last 24 Hour Vital Signs Date Time Temp Pulse Resp B/P (MAP) Pulse Ox O2 Delivery O2 Flow Rate FiO2 10/07/17 12:20 98.1 75 18 137/65 94 Nasal Cannula 4.0 10/07/17 08:17 98.1 74 18 140/70 94 Nasal Cannula 10/07/17 07:54 75 10/07/17 04:36 98.1 78 19 138/70 94 Nasal Cannula 10/07/17 04:00 74 10/07/17 00:19 97.9 84 20 133/65 93 Nasal Cannula 10/07/17 00:00 88 10/06/17 20:12 98.8 80 20 125/63 94 Nasal Cannula 10/06/17 20:00 81 10/06/17 16:00 73 10/06/17 16:00 98.2 75 18 125/61 94 Nasal Cannula 4.0 10/06/17 15:19 76 18 99 10/06/17 15:17 78 18 99 10/06/17 14:55 99.0 76 16 117/69 94 Nasal Cannula 4.0 10/06/17 14:45 74 18 108/61 94 Nasal Cannula 4.0 10/06/17 14:30 76 15 106/61 93 Nasal Cannula 4.0 10/06/17 14:25 82 16 112/60 93 Simple Mask 6.0 10/06/17 14:20 99.2 78 15 111/62 92 Simple Mask 6.0 Height (Feet): 5 Height (Inches): 10.00 Weight (Pounds): 180 HEENT: anicteric Respiratory/Chest: no accessory muscle use Cardiovascular: regularly irregular Abdomen: non distended Microbiology Date/Time Source Procedure Growth Status 10/05/17 00:00 Nasal Nares MRSA Culture - Final Staphylococcus Aureus - Mrsa Complete 10/04/17 20:40 Urine,Clean Catch Urine Culture - Final NO GROWTH AFTER 48 HOURS Complete 10/05/17 00:00 Rectum VRE Culture - Final Enterococcus Faecalis - Vre Complete Laboratory Tests Test 10/07/17 07:10 White Blood Count 7.0 K/UL (4.8-10.8) Red Blood Count 4.01 M/UL (4.70-6.10) L Hemoglobin 12.8 G/DL (14.2-18.0) L Hematocrit 38.3 % (42.0-52.0) L Mean Corpuscular Volume 96 FL (80-99) Mean Corpuscular Hemoglobin 32.0 PG (27.0-31.0) H Mean Corpuscular Hemoglobin Concent 33.5 G/DL (32.0-36.0) Red Cell Distribution Width 11.8 % (11.6-14.8) Platelet Count 118 K/UL (150-450) L Mean Platelet Volume 8.8 FL (6.5-10.1) Neutrophils (%) (Auto) 74.6 % (45.0-75.0) Lymphocytes (%) (Auto) 12.5 % (20.0-45.0) L Monocytes (%) (Auto) 12.3 % (1.0-10.0) H Eosinophils (%) (Auto) 0.1 % (0.0-3.0) Basophils (%) (Auto) 0.6 % (0.0-2.0) Sodium Level 140 MMOL/L (136-145) Potassium Level 3.9 MMOL/L (3.5-5.1) Chloride Level 103 MMOL/L (98-107) Carbon Dioxide Level 33 MMOL/L (21-32) H Anion Gap 4 mmol/L (5-15) L Blood Urea Nitrogen 15 mg/dL (7-18) Creatinine 0.7 MG/DL (0.55-1.30) Estimat Glomerular Filtration Rate mL/min (>60) Glucose Level 108 MG/DL (74-106) H Calcium Level 8.9 MG/DL (8.5-10.1) Phosphorus Level 2.4 MG/DL (2.5-4.9) L Magnesium Level 2.2 MG/DL (1.8-2.4) Total Bilirubin 1.6 MG/DL (0.2-1.0) H Direct Bilirubin 0.3 MG/DL (0.0-0.3) Aspartate Amino Transf (AST/SGOT) 15 U/L (15-37) Alanine Aminotransferase (ALT/SGPT) 18 U/L (12-78) Alkaline Phosphatase 99 U/L (46-116) Troponin I 0.004 ng/mL (0.000-0.056) Total Protein 6.7 G/DL (6.4-8.2) Albumin 2.7 G/DL (3.4-5.0) L Globulin 4.0 g/dL Albumin/Globulin Ratio 0.7 (1.0-2.7) L Current Medications Medications (Trade) Dose Ordered Sig/Abelino Route PRN Reason Start Time Stop Time Status Last Admin Dose Admin Acetaminophen (Tylenol) 650 mg Q4H PRN ORAL Mild Pain/Temp > 100.5 10/07/17 13:00 11/04/17 00:59 Chlorpromazine 25 mg/Sodium Chloride 56 ml @ 110 mls/hr Q6H PRN IVPB HICCUPS 10/07/17 17:00 11/04/17 16:59 Clonazepam (KlonoPIN) 0.25 mg Q6H PRN GT For Anxiety 10/07/17 13:00 10/12/17 00:59 Dextrose/Sodium Chloride 1,000 ml @ 75 mls/hr [id number] IV 10/07/17 13:00 11/04/17 01:59 Doxazosin Mesylate (Cardura) 1 mg DAILY GT 10/08/17 09:00 11/04/17 08:59 Escitalopram Oxalate (Lexapro) 15 mg DAILY GT 10/08/17 09:00 11/05/17 08:59 Memantine (Namenda) 10 mg DAILY GT 10/08/17 09:00 11/04/17 08:59 Morphine Sulfate (Morphine Sulfate) 2 mg Q4H PRN IV For Severe Pain 10/07/17 13:45 10/12/17 13:44 Ondansetron HCl (Zofran) 4 mg Q4H PRN IVP Nausea & Vomiting 10/07/17 13:00 11/04/17 00:59 Pantoprazole (Protonix) 40 mg EVERY 12 HOURS IVP 10/07/17 21:00 11/04/17 08:59 Polyethylene Glycol (Miralax) 17 gm DAILY PRN GT Constipation 10/08/17 09:00 11/04/17 00:59 JONY CASAREZ M.D. Oct 07, 2017 13:52
--- NOTE | 2017-10-07 14:49 | Consultation ---
History of Present Illness General Date patient seen: Oct 05, 2017 Chief Complaint: Gastrointestinal Bleed Referring physician: MECHE SEAY Reason for Consultation: GI BLEED Present Illness HPI 81 yo male with history of mild coronary artery disease previously, history of Brugada syndrome with history of recurrent supraventricular tachycardia, previous catheter ablation. the pt has hx of severe of depression. the pt was in room. the pt has depressed mood, anhedonia. low energy. no si/hi. Allergies: Coded Allergies: No Known Allergies (Unverified , 11/30/12) Medication History Scheduled Aspirin* (Aspir 81*), 81 MG GT DAILY, (Reported) Docusate Sodium* (Docusate Sodium*), 200 MG GT TWICE A DAY, (Reported) Donepezil Hcl* (Donepezil Hcl*), 10 MG GT DAILY, (Reported) Doxazosin Mesylate* (Cardura*), 1 MG GT DAILY, (Reported) Escitalopram Oxalate* (Lexapro*), 5 MG GT DAILY, (Reported) Famotidine (Famotidine), 20 MG GT DAILY, (Reported) Heparin Sodium,Porcine/Ns/Pf (Heparin), 5,000 UNIT IV Q12HR, (Reported) Memantine Hcl* (Namenda*), 10 MG GT DAILY, (Reported) Pantoprazole* (Pantoprazole*), 40 MG ORAL EVERY 12 HOURS, (Reported) Polyethylene Glycol 3350* (Miralax*), 17 GM ORAL DAILY, (Reported) Scheduled PRN Clonazepam* (Klonopin*), 0.25 MG GT Q6H PRN for For Anxiety, (Reported) Miscellaneous Medications Hydrocortisone Hc 2.5% Cream (Anusol-Hc 2.5% Cream), 30 GM RC, (Reported) Melatonin (Melatonin), 3 MG GT, (Reported) Patient History History Provided By: Patient, Family Member, Medical Record, PMD Healthcare decision maker Resuscitation status Full Code Advanced Directive on File No Past Medical/Surgical History Past Medical/Surgical History: (1) Depression (2) Advanced dementia (3) Feeding by G-tube (4) UGIB (upper gastrointestinal bleed) (5) Upper GI bleed Review of Systems Psychiatric: Reports: prior hx, anxiety, depressed feelings, emotional problems Physical Exam General Appearance: no apparent distress, alert Neurologic: alert, oriented x 3, responsive, depressed affect Last 24 Hour Vital Signs Date Time Temp Pulse Resp B/P (MAP) Pulse Ox O2 Delivery O2 Flow Rate FiO2 10/07/17 12:20 98.1 75 18 137/65 94 Nasal Cannula 4.0 10/07/17 08:17 98.1 74 18 140/70 94 Nasal Cannula 10/07/17 07:54 75 10/07/17 04:36 98.1 78 19 138/70 94 Nasal Cannula 10/07/17 04:00 74 10/07/17 00:19 97.9 84 20 133/65 93 Nasal Cannula 10/07/17 00:00 88 10/06/17 20:12 98.8 80 20 125/63 94 Nasal Cannula 10/06/17 20:00 81 10/06/17 16:00 73 10/06/17 16:00 98.2 75 18 125/61 94 Nasal Cannula 4.0 10/06/17 15:19 76 18 99 10/06/17 15:17 78 18 99 10/06/17 14:55 99.0 76 16 117/69 94 Nasal Cannula 4.0 Intake and Output 10/06/17 10/07/17 19:00 07:00 Intake Total 886 ml 960 ml Balance 886 ml 960 ml IV Total 886 ml 900 ml Tube Feeding 60 ml Laboratory Tests Test 10/07/17 07:10 White Blood Count 7.0 K/UL (4.8-10.8) Red Blood Count 4.01 M/UL (4.70-6.10) L Hemoglobin 12.8 G/DL (14.2-18.0) L Hematocrit 38.3 % (42.0-52.0) L Mean Corpuscular Volume 96 FL (80-99) Mean Corpuscular Hemoglobin 32.0 PG (27.0-31.0) H Mean Corpuscular Hemoglobin Concent 33.5 G/DL (32.0-36.0) Red Cell Distribution Width 11.8 % (11.6-14.8) Platelet Count 118 K/UL (150-450) L Mean Platelet Volume 8.8 FL (6.5-10.1) Neutrophils (%) (Auto) 74.6 % (45.0-75.0) Lymphocytes (%) (Auto) 12.5 % (20.0-45.0) L Monocytes (%) (Auto) 12.3 % (1.0-10.0) H Eosinophils (%) (Auto) 0.1 % (0.0-3.0) Basophils (%) (Auto) 0.6 % (0.0-2.0) Sodium Level 140 MMOL/L (136-145) Potassium Level 3.9 MMOL/L (3.5-5.1) Chloride Level 103 MMOL/L (98-107) Carbon Dioxide Level 33 MMOL/L (21-32) H Anion Gap 4 mmol/L (5-15) L Blood Urea Nitrogen 15 mg/dL (7-18) Creatinine 0.7 MG/DL (0.55-1.30) Estimat Glomerular Filtration Rate mL/min (>60) Glucose Level 108 MG/DL (74-106) H Calcium Level 8.9 MG/DL (8.5-10.1) Phosphorus Level 2.4 MG/DL (2.5-4.9) L Magnesium Level 2.2 MG/DL (1.8-2.4) Total Bilirubin 1.6 MG/DL (0.2-1.0) H Direct Bilirubin 0.3 MG/DL (0.0-0.3) Aspartate Amino Transf (AST/SGOT) 15 U/L (15-37) Alanine Aminotransferase (ALT/SGPT) 18 U/L (12-78) Alkaline Phosphatase 99 U/L (46-116) Troponin I 0.004 ng/mL (0.000-0.056) Total Protein 6.7 G/DL (6.4-8.2) Albumin 2.7 G/DL (3.4-5.0) L Globulin 4.0 g/dL Albumin/Globulin Ratio 0.7 (1.0-2.7) L Height (Feet): 5 Height (Inches): 10.00 Weight (Pounds): 180 Medications Current Medications Medications (Trade) Dose Ordered Sig/Abelino Route PRN Reason Start Time Stop Time Status Last Admin Dose Admin Acetaminophen (Tylenol) 650 mg Q4H PRN ORAL Mild Pain/Temp > 100.5 10/07/17 13:00 11/04/17 00:59 Chlorpromazine 25 mg/Sodium Chloride 56 ml @ 110 mls/hr Q6H PRN IVPB HICCUPS 10/07/17 17:00 11/04/17 16:59 Clonazepam (KlonoPIN) 0.25 mg Q6H PRN GT For Anxiety 10/07/17 13:00 10/12/17 00:59 Dextrose/Sodium Chloride 1,000 ml @ 75 mls/hr [id number] IV 10/07/17 13:00 11/04/17 01:59 Doxazosin Mesylate (Cardura) 1 mg DAILY GT 10/08/17 09:00 11/04/17 08:59 Escitalopram Oxalate (Lexapro) 15 mg DAILY GT 10/08/17 09:00 11/05/17 08:59 Memantine (Namenda) 10 mg DAILY GT 10/08/17 09:00 11/04/17 08:59 Morphine Sulfate (Morphine Sulfate) 2 mg Q4H PRN IV For Severe Pain 10/07/17 13:45 10/12/17 13:44 Ondansetron HCl (Zofran) 4 mg Q4H PRN IVP Nausea & Vomiting 10/07/17 13:00 11/04/17 00:59 Pantoprazole (Protonix) 40 mg EVERY 12 HOURS IVP 10/07/17 21:00 11/04/17 08:59 Polyethylene Glycol (Miralax) 17 gm DAILY PRN GT Constipation 10/08/17 09:00 11/04/17 00:59 Assessment/Plan Status: stable, progressing Assessment/Plan mdd anxiety mdd -cont lexapro increase to 15mg q daily - nAil Batista M.D. Oct 07, 2017 14:49
--- NOTE | 2017-10-07 14:50 | General Progress Note ---
Assessment/Plan Status: stable, progressing Assessment/Plan mdd anxiety -cont lexapro -will change to Cymbalta tomorrow Subjective Date patient seen: Oct 06, 2017 Neurologic/Psychiatric: Reports: anxiety, depressed, emotional problems Allergies: Coded Allergies: No Known Allergies (Unverified , 11/30/12) Subjective the pt is the same depressed and anxious Objective Last 24 Hour Vital Signs Date Time Temp Pulse Resp B/P (MAP) Pulse Ox O2 Delivery O2 Flow Rate FiO2 10/07/17 12:20 98.1 75 18 137/65 94 Nasal Cannula 4.0 10/07/17 08:17 98.1 74 18 140/70 94 Nasal Cannula 10/07/17 07:54 75 10/07/17 04:36 98.1 78 19 138/70 94 Nasal Cannula 10/07/17 04:00 74 10/07/17 00:19 97.9 84 20 133/65 93 Nasal Cannula 10/07/17 00:00 88 10/06/17 20:12 98.8 80 20 125/63 94 Nasal Cannula 10/06/17 20:00 81 10/06/17 16:00 73 10/06/17 16:00 98.2 75 18 125/61 94 Nasal Cannula 4.0 10/06/17 15:19 76 18 99 10/06/17 15:17 78 18 99 10/06/17 14:55 99.0 76 16 117/69 94 Nasal Cannula 4.0 Intake and Output 10/06/17 10/07/17 19:00 07:00 Intake Total 886 ml 960 ml Balance 886 ml 960 ml IV Total 886 ml 900 ml Tube Feeding 60 ml Laboratory Tests 10/07/17 07:10: White Blood Count 7.0, Red Blood Count 4.01L, Hemoglobin 12.8L, Hematocrit 38.3L , Mean Corpuscular Volume 96, Mean Corpuscular Hemoglobin 32.0H, Mean Corpuscular Hemoglobin Concent 33.5, Red Cell Distribution Width 11.8, Platelet Count 118L, Mean Platelet Volume 8.8, Neutrophils (%) (Auto) 74.6, Lymphocytes ( %) (Auto) 12.5L, Monocytes (%) (Auto) 12.3H, Eosinophils (%) (Auto) 0.1, Basophils (%) (Auto) 0.6, Sodium Level 140, Potassium Level 3.9, Chloride Level 103, Carbon Dioxide Level 33H, Anion Gap 4L, Blood Urea Nitrogen 15, Creatinine 0.7, Estimat Glomerular Filtration Rate , Glucose Level 108H, Calcium Level 8.9 , Phosphorus Level 2.4L, Magnesium Level 2.2, Total Bilirubin 1.6H, Direct Bilirubin 0.3, Aspartate Amino Transf (AST/SGOT) 15, Alanine Aminotransferase ( ALT/SGPT) 18, Alkaline Phosphatase 99, Troponin I 0.004, Total Protein 6.7, Albumin 2.7L, Globulin 4.0, Albumin/Globulin Ratio 0.7L Height (Feet): 5 Height (Inches): 10.00 Weight (Pounds): 180 General Appearance: no apparent distress, alert Neurologic: alert, oriented x 3, responsive, depressed affect Anil Boland M.D. Oct 07, 2017 14:50
--- NOTE | 2017-10-07 15:11 | General Progress Note ---
Assessment/Plan Assessment/Plan Assessment (1) Advanced dementia (2) Upper GI bleed (3) Feeding by G-tube (4) UGIB (upper gastrointestinal bleed) Plan anemia work up PPI Elevate HOB OB stool r/o GI bleed monitor H&H, prn transfusions bowel regimen ppi BID fu labs Subjective Allergies: Coded Allergies: No Known Allergies (Unverified , 11/30/12) Subjective Feels OK c/o hiccups no N/V tolerating TF Objective Last 24 Hour Vital Signs Date Time Temp Pulse Resp B/P (MAP) Pulse Ox O2 Delivery O2 Flow Rate FiO2 10/07/17 12:20 98.1 75 18 137/65 94 Nasal Cannula 4.0 10/07/17 08:17 98.1 74 18 140/70 94 Nasal Cannula 10/07/17 07:54 75 10/07/17 04:36 98.1 78 19 138/70 94 Nasal Cannula 10/07/17 04:00 74 10/07/17 00:19 97.9 84 20 133/65 93 Nasal Cannula 10/07/17 00:00 88 10/06/17 20:12 98.8 80 20 125/63 94 Nasal Cannula 10/06/17 20:00 81 10/06/17 16:00 73 10/06/17 16:00 98.2 75 18 125/61 94 Nasal Cannula 4.0 10/06/17 15:19 76 18 99 10/06/17 15:17 78 18 99 Intake and Output 10/06/17 10/07/17 19:00 07:00 Intake Total 886 ml 960 ml Balance 886 ml 960 ml IV Total 886 ml 900 ml Tube Feeding 60 ml Laboratory Tests 10/07/17 07:10: White Blood Count 7.0, Red Blood Count 4.01L, Hemoglobin 12.8L, Hematocrit 38.3L , Mean Corpuscular Volume 96, Mean Corpuscular Hemoglobin 32.0H, Mean Corpuscular Hemoglobin Concent 33.5, Red Cell Distribution Width 11.8, Platelet Count 118L, Mean Platelet Volume 8.8, Neutrophils (%) (Auto) 74.6, Lymphocytes ( %) (Auto) 12.5L, Monocytes (%) (Auto) 12.3H, Eosinophils (%) (Auto) 0.1, Basophils (%) (Auto) 0.6, Sodium Level 140, Potassium Level 3.9, Chloride Level 103, Carbon Dioxide Level 33H, Anion Gap 4L, Blood Urea Nitrogen 15, Creatinine 0.7, Estimat Glomerular Filtration Rate , Glucose Level 108H, Calcium Level 8.9 , Phosphorus Level 2.4L, Magnesium Level 2.2, Total Bilirubin 1.6H, Direct Bilirubin 0.3, Aspartate Amino Transf (AST/SGOT) 15, Alanine Aminotransferase ( ALT/SGPT) 18, Alkaline Phosphatase 99, Troponin I 0.004, Total Protein 6.7, Albumin 2.7L, Globulin 4.0, Albumin/Globulin Ratio 0.7L Height (Feet): 5 Height (Inches): 10.00 Weight (Pounds): 180 Objective WDWN NCAT supple CTA RRR soft ND NT (+)PEG no edema DELMER MOODY Oct 07, 2017 15:11
--- NOTE | 2017-10-07 15:29 | Cardiology Report ---
APPROVED REPORT EKG Measurement Heart [id number] Sinus rhythm with 1st degree AV block Cannot rule out Anterior infarct, age undetermined Abnormal ECG
[2017-10-07] MEDS ORDERED: Sterile Water Irrig 1000ml IRRIG ONE (16:27)
[2017-10-07] MEDS ORDERED: D5 1/2NS 1000ml IV ONE (16:27)
[2017-10-07] MEDS ORDERED: NS IVPB PRN (17:00)
[2017-10-07] MEDS ORDERED: CHLORPROMAZINE IVPB PRN (17:00)
--- NOTE | 2017-10-07 17:09 | Internal Med Progress Note ---
Subjective Date of Service: Oct 07, 2017 Physician Name Chidi Lewis Attending Physician Willie Sanchez MD Allergies: Coded Allergies: No Known Allergies (Unverified , 11/30/12) ROS Limited/Unobtainable: No Constitutional: Reports: no symptoms HEENT: Reports: no symptoms Cardiovascular: Reports: no symptoms Respiratory: Reports: no symptoms Gastrointestinal/Abdominal: Reports: no symptoms Genitourinary: Reports: no symptoms Neurologic/Psychiatric: Reports: no symptoms Subjective 81 YO M admitted with upper GI bleeding. Patient son wants to sign out against medical advise to transfer to [facility]-see nurse note. Cover for Int Med- Dr Sanchez Objective Last Vital Signs Date Time Temp Pulse Resp B/P (MAP) Pulse Ox O2 Delivery O2 Flow Rate FiO2 10/07/17 12:20 98.1 75 18 137/65 94 Nasal Cannula 4.0 Laboratory Tests Test 10/07/17 07:10 White Blood Count 7.0 K/UL (4.8-10.8) Red Blood Count 4.01 M/UL (4.70-6.10) L Hemoglobin 12.8 G/DL (14.2-18.0) L Hematocrit 38.3 % (42.0-52.0) L Mean Corpuscular Volume 96 FL (80-99) Mean Corpuscular Hemoglobin 32.0 PG (27.0-31.0) H Mean Corpuscular Hemoglobin Concent 33.5 G/DL (32.0-36.0) Red Cell Distribution Width 11.8 % (11.6-14.8) Platelet Count 118 K/UL (150-450) L Mean Platelet Volume 8.8 FL (6.5-10.1) Neutrophils (%) (Auto) 74.6 % (45.0-75.0) Lymphocytes (%) (Auto) 12.5 % (20.0-45.0) L Monocytes (%) (Auto) 12.3 % (1.0-10.0) H Eosinophils (%) (Auto) 0.1 % (0.0-3.0) Basophils (%) (Auto) 0.6 % (0.0-2.0) Sodium Level 140 MMOL/L (136-145) Potassium Level 3.9 MMOL/L (3.5-5.1) Chloride Level 103 MMOL/L (98-107) Carbon Dioxide Level 33 MMOL/L (21-32) H Anion Gap 4 mmol/L (5-15) L Blood Urea Nitrogen 15 mg/dL (7-18) Creatinine 0.7 MG/DL (0.55-1.30) Estimat Glomerular Filtration Rate mL/min (>60) Glucose Level 108 MG/DL (74-106) H Calcium Level 8.9 MG/DL (8.5-10.1) Phosphorus Level 2.4 MG/DL (2.5-4.9) L Magnesium Level 2.2 MG/DL (1.8-2.4) Total Bilirubin 1.6 MG/DL (0.2-1.0) H Direct Bilirubin 0.3 MG/DL (0.0-0.3) Aspartate Amino Transf (AST/SGOT) 15 U/L (15-37) Alanine Aminotransferase (ALT/SGPT) 18 U/L (12-78) Alkaline Phosphatase 99 U/L (46-116) Troponin I 0.004 ng/mL (0.000-0.056) Total Protein 6.7 G/DL (6.4-8.2) Albumin 2.7 G/DL (3.4-5.0) L Globulin 4.0 g/dL Albumin/Globulin Ratio 0.7 (1.0-2.7) L Microbiology Date/Time Source Procedure Growth Status 10/05/17 00:00 Nasal Nares MRSA Culture - Final Staphylococcus Aureus - Mrsa Complete 10/04/17 20:40 Urine,Clean Catch Urine Culture - Final NO GROWTH AFTER 48 HOURS Complete 10/05/17 00:00 Rectum VRE Culture - Final Enterococcus Faecalis - Vre Complete Intake and Output 10/06/17 10/07/17 19:00 07:00 Intake Total 886 ml 960 ml Balance 886 ml 960 ml IV Total 886 ml 900 ml Tube Feeding 60 ml Objective Objective General: No acute distress, awake and alert HEENT: NCAT, sclera anicteric, PERRL, EOMI. Neck: Supple, no significant jugular venous distention, Lungs: Fair inspiratory effort, decrease air on bases, no Wheeze or Rales. Heart: Regular rate and rhythm, normal S1/S2, no murmurs Abdomen: soft, generalized tenderness, massive distended. hypoactive bowel sounds. + PEG. Extremities: No Cyanosis , clubbing or edema. Neuro: A&O x 3, Able to move all extremities Skin: warm, no rashes or lesions Psych: Normal mood and affect Assessment/Plan Problem List: (1) Gastritis, acute Assessment & Plan: continue protonix IV (2) Myelodysplastic syndrome with 5q deletion (3) BPH (benign prostatic hyperplasia) (4) GERD (gastroesophageal reflux disease) (5) Cerebral vascular disease (6) Upper GI bleed Assessment & Plan: S/P endoscopy 10/06/17. Dx=gastritis (7) Depression Assessment/Plan Patient son to sign out against medical advise to transfer to [facility] CHIDI LEWIS Oct 07, 2017 17:09
[2017-10-07] MEDS ORDERED: Pantoprazole Inj IVP SCH (21:00)
[2017-10-08] MEDS ORDERED: Miralax 17gm pkt GT PRN (09:00)
[2017-10-08] MEDS ORDERED: Doxazosin 1mg Tab GT SCH (09:00)
[2017-10-08] MEDS ORDERED: DULoxetine 30mg cap ORAL SCH (09:00)
[2017-10-08] MEDS ORDERED: Escitalopram Oxalate 5mg tab GT SCH (09:00)
[2017-10-08] MEDS ORDERED: Memantine 10mg tab GT SCH (09:00)
--- NOTE | 2017-10-09 12:11 | Cardiology Report ---
APPROVED REPORT EXAM: Two-dimensional and M-mode echocardiogram with Doppler and color Doppler. INDICATION Chest Pain M-Mode DIMENSIONS IVSd1.4 (0.7-1.1cm)Left Atrium (MM)3.9 (1.6-4.0cm) LVDd4.1 (3.5-5.6cm)Aortic Root2.5 (2.0-3.7cm) PWd1.1 (0.7-1.1cm)Aortic Cusp Exc.1.8 (1.5-2.0cm) LVDs2.0 (2.5-4.0cm) PWs1.8 cm Technically difficult study due to poor acoustic windows. Study quality precludes accurate assessment of regional wall motion. Normal left ventricular chamber size, systolic function and wall motion. Left ventricular ejection fraction estimated to be 55 %. Mild left ventricular hypertrophy. Anterior Echo-free space, may be due to pericardial fat or effusion. All other cardiac chamber sizes are within normal limits. Mild focal aortic valve sclerosis with adequate cusp excursion. Thickened mitral valve leaflets with normal excursion. Mild mitral annulus and aortic root calcification. Pulmonic valve not well visualized. Normal tricuspid valve structure. Subcostal views not obtained due to GI tube. A color flow and spectral Doppler study was performed and revealed: Moderate aortic regurgitation. Trace mitral regurgitation. Mitral diastolic velocities suggest mild left ventricular dysfunction (Grade I ). Trace tricuspid regurgitation. Tricuspid systolic velocities suggests peak right ventricular systolic pressure of 19 mmHg. Mild pulmonic regurgitation present.
--- NOTE | 2017-10-11 08:03 | Discharge Summary ---
Discharge Summary Hospital Course Date of Admission Oct 04, 2017 at 21:11 Date of Discharge Oct 07, 2017 at 16:28 Admitting Diagnosis UPPER GI BLEED BESS Thorne is a 81 year old male who was admitted on Oct 04, 2017 at 21:11 for Upper Gastrointestinal Bleed Hospital Course dc summary # [id number] Discharge Discharge Disposition Patient signed AMA Discharge Diagnoses: Discharge Instructions Discharge Instructions Special Instructions I have been assigned to complete a D/C Summary on this account. I was not involved in the patient management Jennifer Mcgee NP ([place]) Oct 11, 2017 08:03
--- NOTE | 2017-10-11 22:03 | Discharge Summary 2 SIG ---
DATE OF ADMISSION: 10/04/2017 DATE OF SIGNING AGAINST MEDICAL ADVICE: 10/07/2017. REASON FOR ADMISSION: 80-year-old male with past medical history of cerebrovascular disease with stroke, dysphagia, G-tube, BPH, gastroesophageal reflux disease, myelodysplastic disorder, Brugada syndrome with failed ablation, and hypertension, presented from the nursing home facility with multiple episodes of coffee-ground emesis. The patient also complained of epigastric pain. No chest pain. No shortness of breath. No fever. No chills. Workup in the emergency room revealed blood pressure -157/92. Otherwise, vital signs were stable. EKG revealed sinus rhythm with first-degree AV block. No evidence of arrhythmia. No leukocytosis. Troponin negative. Electrolytes and renal parameters were stable. LFTs within normal limits. Urinalysis with moderate bacteria and positive for leukocyte esterase. The patient was admitted with a diagnoses of upper GI bleeding, hypertension, myelodysplastic syndrome, gastroesophageal reflux disease, BPH, Brugada syndrome with failed ablation, cerebrovascular disease with history of CVA, possible urinary tract infection and depression. HOSPITAL COURSE: The patient was admitted. The patient was initially kept NPO and started on the IV fluids. GI consult was requested. Initially, the patient was started on empiric antibiotics for possible urinary tract infection. GI consult was requested. The patient subsequently undergone endoscopy. Endoscopy showed diffuse gastritis, status post biopsy and inflammation around G-tube, but no active bleeding. Results of pathology revealed [id number] chronic gastritis. No Helicobacter. The patient was on the intravenous proton pump inhibitor. Patient was slowly started on feeding and was able to tolerate tube feeding. Strict aspiration/reflux precautions were maintained. Bowel regimen instituted. Thorazine given as needed for hiccup. Hemoglobin and hematocrit closely monitored, the lowest -12.8, on the day of signing against medical advice. Antiemetic provided as needed. No further hematemesis. Upper GI bleeding was likely provoked by gastritis. ID followed, since the urinalysis was suspicious for urinary tract infection. However, urine culture revealed no evidence of growth. Antibiotic was stopped. No leukocytosis. No fever. ID recommended to monitor patient off antibiotics. Informatics Physician Liaison closely followed the patient. The patient upon admission to the floor complained of the chest pain. The patient was in the telemetry floor. No arrhythmia seen on EKG. Informatics Physician Liaison compared the patient's EKG with prior one, done in [facility], and there were no acute changes. Serial troponin were negative. The patient was ruled out for acute myocardial infarction. Chest pain was atypical, and according to salvage machine operator, likely related to gastritis, but with chronic discomfort. The patient has a salvage machine operator at [facility], with whom he follows. Psychiatrist seen and evaluated the patient and optimized psychiatric medication regimen. The patient was diagnosed with major depressive disorder with anxiety. Antidepressive regimen optimized as per psychiatrist. Namenda was continued for advanced dementia. Blood pressure was controlled with Cardura. Supplemental oxygen and pulmonary toilet were on board on as needed basis. On 10/07/2017, the patient's son arrived and expressed a desire to sign his father against medical advice. He wanted to take him to [facility] , where all his records and doctors located. The risks and consequences of signing against medical advice were discussed with the patient's son and patient. He verbalized understanding. However, patient left with his son via car. FINAL DIAGNOSES: 1. Upper gastrointestinal bleeding (secondary to gastritis). 2. Atypical chest pain with history of chronic chest discomfort (likely related to gastritis). 3. Hypertension. 4. Myelodysplastic syndrome. 5. Gastroesophageal reflux disease. 6. Gastritis. 7. Benign prostatic hypertrophy. 8. Brugada syndrome with failed ablation. 9. Cerebrovascular disease. 10. Dysphagia, gastrostomy-tube, status post esophagogastroduodenoscopy. 11. Major depressive disorder. 12. Anxiety. Willie Sanchez M.D. I have been assigned to dictate discharge summary on this account and I was not involved in the patient's management. Jennifer Beckfordlalit N.P. DR: STEPHANIE JOB#: [id number] CC: LETA
--- NOTE | 2017-10-12 15:00 | Cardiology Report ---
APPROVED REPORT EKG Measurement Heart [id number] Sinus rhythm with 1st degree AV block T wave abnormality, consider anterior ischemia Abnormal ECG
--- NOTE | 2017-10-22 20:35 | Diagnostic Imaging Report ---
APPROVED REPORT CPT Code: 72095 Present Symptoms Lower Extremity Pain: Comments: R/O DVT. BILATERAL LOWER EXTREMITY VENOUS DUPLEX: Imaging reveals a patent deep venous system bilaterally. There is no evidence of thrombus within the femoral, popliteal or tibial segments. The greater saphenous veins are also within normal limits. Doppler indicates normal spontaneous flow within these segments.
== END 2017-10-07 16:28 | disposition left against medical advice (07) | DRG 378 ==
LOC: EDUNIT# 18:45 → EDBD 18:45 → EMR 21:02 → 2E 21:11 → EDBEDREQ 21:50 → 4E 10-07 12:45
PROC: 0DB78ZX Excision of Stomach, Pylorus, Via Natural or Artificial Opening Endoscopic, Diagnostic (ICD-10-PCS; principal; 2017-10-06 14:08)
DX: K29.71 Gastritis, unspecified, with bleeding (principal); D46.C Myelodysplastic syndrome with isolated del(5q) chromosomal abnormality; F03.90 Unspecified dementia, unspecified severity, without behavioral disturbance, psychotic disturbance, mood disturbance, and anxiety; I49.8 Other specified cardiac arrhythmias; Z43.1 Encounter for attention to gastrostomy; F32.9 Major depressive disorder, single episode, unspecified; I10 Essential (primary) hypertension; N40.0 Benign prostatic hyperplasia without lower urinary tract symptoms; K21.9 Gastro-esophageal reflux disease without esophagitis; I67.9 Cerebrovascular disease, unspecified; R13.10 Dysphagia, unspecified; R06.6 Hiccough; R07.89 Other chest pain; F41.9 Anxiety disorder, unspecified
CPT/HCPCS: 36415; 71045; 74018; 80048; 80053; 81003; 82248; 82550; 82553; 83690; 83735; 84100; 84484; 85025; 85610; 85730; 86850; 86900; 86901; 87081; 87086; 93005; 93306; 93970; 94003; 94150; 99285; J2405